=== PATIENT | male | born 1975 | race Caucasian/White ===

== ENCOUNTER 2020-01-10 08:25 | Inpatient (IN) | payer MEDICARE, SELFPAY ==
[2020-01-10] MEDS ORDERED: hydrALAZINE 20 MG/ML VIAL SLOW IVP PRN (17:27)
[2020-01-10] MEDS ORDERED: Dextrose 5% in Water 1,000 ML IV PRN (17:27)
[2020-01-10] MEDS ORDERED: HumaLOG 300 UNITS/3 ML VIAL SC PRN (17:27)
[2020-01-10] MEDS ORDERED: Acetaminophen 325 MG TAB PO PRN (17:27)
[2020-01-10] MEDS ORDERED: Ondansetron PF 4 MG/2 ML Vial IVP PRN (17:27)
[2020-01-10] MEDS ORDERED: Sodium Chloride 0.9% (PF) 10 ML VIAL FS PRN (17:30)
[2020-01-10 18:02] LABS: #Eosinphils 0.1 thou/uL (0.0-0.7); #Lymphocytes 1.3 thou/uL (1.20-3.40); #Monocytes 0.7 thou/uL (0.11-0.59); #Neutrophils 7.2 thou/uL (1.40-6.50); %Basophils 0.4 % (0.0-1.0); %Eosinophils 0.6 % (0.0-10.0); %Lymphocytes 14.1 % (21.0-51.0); %Monocytes 7.2 % (0.0-10.0); %Neutrophils 77.7 % (42.0-75.0); Hemoglobin 8.1 g/dL (14.0-18.0); Mean Corpuscular HGB CONC 30.8 g/dL (32.0-36.0); Mean Corpuscular Hemoglobin 21.8 pg (27.0-31.0); Mean Corpuscular Volume 70.6 fL (78.0-98.0); Mean Platelet Volume 7.7 fL (7.4-10.4); Platelet Count 584 thou/uL (130-400); RBC Distribution Width 21.5 % (11.5-14.5); Red Blood Cell (RBC) Count 3.74 mill/uL (4.70-6.10); White Blood Cell (WBC) Count 9.3 thou/uL (4.8-10.8)
[2020-01-10 18:19] LABS: Anion Gap 9 mmol/L (10-20); BUN (Urea Nitrogen) 12 mg/dL (8.9-20.6); Calc. Creatinine Clearance 52 mL/min (70-130); Calcium 8.1 mg/dL (7.8-10.44); Carbon Dioxide 21 mmol/L (22-29); Chloride 110 mmol/L (98-107); Estimated GFR-MDRD 75; Glucose 107 mg/dL (70-105); Magnesium 1.9 mg/dL (1.6-2.6); Sodium 138 mmol/L (136-145)
[2020-01-10] MEDS: NS 0.9% w/ 20 MEQ KCL 1,000 ML/1,000 ML BAG IV SCH (18:31)
[2020-01-10 18:39] LABS: Potassium 2.3 mmol/L (3.5-5.1)
[2020-01-10] MEDS ORDERED: Potassium Chloride 40 MEQ in Premix Bag 1 BAG IVPB SCH (18:45)
[2020-01-10] MEDS ORDERED: Potassium Chloride 40 MEQ in Sodium Chloride 0.9% 250 ML 250 ML IVPB SCH (19:00)
--- NOTE | 2020-01-10 19:16 | HP ---
PRIMARY CARE PHYSICIAN: The patient currently does not have a primary care physician. CHIEF COMPLAINT: Abdominal pain. HISTORY OF PRESENT ILLNESS: Mr. Méndez is a pleasant for 44-year-old gentleman, who has a history of Crohn's disease. He recently moved here from [place], [place], and says that he has not had treatment for his Crohn disease in many years, he says about 5 years. He has noticed recently abdominal pain which has been more or less diffuse, but he also has had pain from his mouth down to his xiphoid, which he describes as a burning-like sensation. This has been for the last 2 weeks. He says is not related to any position that he sits in. He does not seem to be related to food with the exception of soda tends to make it worse. He also has been having chronic diarrhea, but no blood in the stools. He has had some vomiting off and on, but no fevers, no chills. He also has had about 15 pounds weight loss over the past 2 weeks and has been extremely weak. As a result of the symptoms, he went to the emergency room at [facility]. There, he was found to have severe anemia as well as hypokalemia. They gave him potassium replacement overnight, but he still had a potassium of around 2.2. For this reason, he was transferred to our facility for further evaluation. REVIEW OF SYSTEMS: All systems were reviewed and are negative except for that mentioned in the history of present illness. He did also have some depressive symptoms including anhedonia and decreased aspects of poor sleep patterns, but no suicidal ideation or homicidal ideation. PAST MEDICAL HISTORY: Significant for Crohn disease, gastroesophageal reflux disease, depression and anxiety. PAST SURGICAL HISTORY: He has had an appendectomy, cholecystectomy, ileostomy, lithotripsy and small-bowel obstruction. ALLERGIES: TO CONTRAST AND BLOOD TRANSFUSIONS. FAMILY HISTORY: Significant for heart disease and cerebrovascular disease. SOCIAL HISTORY: He has recovered from an opioid addiction. Denies any alcohol use. He says he smokes about five cigarettes a day. CURRENT MEDICATIONS: Include just tramadol 50 mg q.6 as needed. PHYSICAL EXAMINATION: GENERAL: He is alert and oriented. He is very thin and frail and cachectic in appearance and appears chronically ill. HEENT: He does have some temporal muscle wasting. No erythema. No exudates. NECK: No adenopathy. No bruits. LUNGS: Clear to auscultation. There is no wheezing, no rales, no rhonchi. CARDIOVASCULAR: He has a normal S1 and S2. There was no S3 or S4. No murmurs, clicks, or rubs. ABDOMEN: Scaphoid. He did have some diffuse tenderness primarily in the left lower quadrant. There is no rebound, no guarding, no organomegaly. EXTREMITIES: There is significant lower extremity muscle wasting. No edema. No joint effusions. NEUROLOGIC: The exam is grossly nonfocal. SKIN AND INTEGUMENT: No significant skin changes. No rash. LABORATORY DATA: The labs were reviewed from the [facility] ER and these include white blood cell count of 11.7, hemoglobin of 7.2, hematocrit is 24, platelet count was 523. Sodium 134, potassium 2.3, chloride is 104, CO2 is 21, BUN of 13, and creatinine of 1.1. Liver tests appear normal. ASSESSMENT: This is a pleasant 44-year-old gentleman, who was sent over from [facility] ER due to severe hypokalemia, anemia, weight loss and abdominal pain secondary to Crohn disease. There is no clinical evidence of obstruction. 1. With the hypokalemia, we will get a stat chemistry panel now and continue to replace his potassium as needed. We will also need to check his serum magnesium level as well. 2. Abdominal pain in the setting of Crohn's disease. He does not appear to have an acute abdomen. We will need to follow up on the CT scan report, which was done prior to him being sent over and we will consult Gastroenterology to help in the evaluation, place him on IV proton pump inhibitors and obtain stool studies for the diarrhea to rule out superimposed infection. 3. Weight loss. This is concerning for potential malignancy given the untreated Crohn disease. We will defer to further workup by GI and also get a nutritional consult as well. The patient will be placed on deep venous thrombosis prophylaxis and further recommendations to follow. Job ID: [id number]
[2020-01-10] MEDS: Pantoprazole 40 MG VIAL IVP SCH (19:43)
[2020-01-10] MEDS ORDERED: Pantoprazole 40 MG VIAL IVP SCH (21:00)
[2020-01-11 04:43] LABS: #Basophils 0.1 thou/uL (0.0-0.2); #Eosinphils 0.1 thou/uL (0.0-0.7); #Lymphocytes 1.9 thou/uL (1.20-3.40); #Neutrophils 7.7 thou/uL (1.40-6.50); %Basophils 0.5 % (0.0-1.0); %Eosinophils 0.8 % (0.0-10.0); %Lymphocytes 17.4 % (21.0-51.0); %Monocytes 9.2 % (0.0-10.0); %Neutrophils 72.2 % (42.0-75.0); Hemoglobin 7.4 g/dL (14.0-18.0); Mean Corpuscular HGB CONC 29.5 g/dL (32.0-36.0); Mean Corpuscular Hemoglobin 21.2 pg (27.0-31.0); Mean Corpuscular Volume 71.7 fL (78.0-98.0); Mean Platelet Volume 7.7 fL (7.4-10.4); Platelet Count 536 thou/uL (130-400); RBC Distribution Width 21.4 % (11.5-14.5); White Blood Cell (WBC) Count 10.7 thou/uL (4.8-10.8)
[2020-01-11] MEDS: NS 0.9% w/ 20 MEQ KCL 1,000 ML/1,000 ML BAG IV SCH (04:54)
[2020-01-11 05:18] LABS: ALT (SGPT) 44 U/L (8-55); AST (SGOT) 36 U/L (5-34); Albumin 2.7 g/dL (3.5-5.0); Alkaline Phosphatase 113 U/L (40-110); Anion Gap 11 mmol/L (10-20); BUN (Urea Nitrogen) 10 mg/dL (8.9-20.6); Bilirubin, Total Less than 0.2 mg/dL (0.2-1.2); Calc. Creatinine Clearance 57 mL/min (70-130); Calcium 7.6 mg/dL (7.8-10.44); Carbon Dioxide 16 mmol/L (22-29); Chloride 114 mmol/L (98-107); Estimated GFR-MDRD 84; Globulin 2.4 g/dL (2.4-3.5); Glucose 83 mg/dL (70-105); Protein, Total 5.1 g/dL (6.0-8.3); Sodium 138 mmol/L (136-145)
[2020-01-11 05:22] LABS: Potassium 2.7 mmol/L (3.5-5.1)
[2020-01-11] MEDS ORDERED: Potassium Chloride 40 MEQ in Premix Bag 1 BAG IVPB SCH (08:00)
[2020-01-11] MEDS: Potassium Chloride 20 MEQ in Premix Bag 1 BAG IVPB SCH ×2 (08:20→15:28)
[2020-01-11] MEDS: Pantoprazole 40 MG VIAL IVP SCH ×2 (08:21→20:52)
--- NOTE | 2020-01-11 08:42 | PDOC.HOSPP ---
- Subjective Encounter Date: 01/11/20 Encounter Time: 08:40 Subjective: Mr. Méndez is being followed for anemia, hypokalemia, and diarrhea. This morning he seemed better compared to yesterday, but still appears cachectic. He was more talkative and willing to describe his symptoms today than yesterday. He is worried about the pain he is experiencing and his unmanaged Crohn's. He reported have 8 diarrheal movements overnight as well as one accident where he couldn't make it to the bathroom. He is less somnolent than yesterday. - Objective Vital Signs & Weight: Vital Signs (12 hours) Temp Pulse Resp BP BP Pulse Ox 01/11/20 08:12 97.5 F L 67 18 88/51 L 86/52 L 100 01/11/20 04:00 98.8 F 77 20 98/55 L 98 01/10/20 23:30 98.8 F 77 21 H 94/51 L 100 Weight Weight 41.095 kg I&O: 01/10/20 01/11/20 01/12/20 06:59 06:59 06:59 Intake Total 2110 Output Total 700 Balance 1410 Result Diagrams: 01/11/20 10:59 01/11/20 04:01 Additional Labs: Accuchecks 01/11/20 01/10/20 05:39 20:42 POC Glucose 95 85 Hospitalist ROS - Review of Systems Constitutional: reports: chills, weakness, malaise. denies: fever Eyes: denies: pain Respiratory: denies: cough, shortness of breath Cardiovascular: reports: light headedness (patient reports being dizzy). denies : chest pain, palpitations Gastrointestinal: reports: nausea, diarrhea (reports 8 watery bowel movements overnight and one accident). denies: vomiting, abdominal pain, melena, hematochezia Genitourinary: denies: dysuria - Medication Medications: Active Medications Generic Name Dose Route Start Last Admin Trade Name Freq PRN Reason Stop Dose Admin Enoxaparin Sodium 40 mg 01/11/20 09:00 01/11/20 08:21 Lovenox SC 40 mg 0900 CLINTON Administration Potassium Chloride/Sodium Chloride 1,000 ml in 1,000 mls @ 75 mls/hr 01/10/20 17:30 01/11/20 04:54 Ns 0.9% W/ 20 Meq Kcl IV Not Given .[id number] CLINTON Potassium Chloride 20 meq/ 100 mls @ 50 mls/hr 01/11/20 08:00 01/11/20 08:20 Device IVPB 01/11/20 11:59 100 mls Q2H [place]ON Administration Pantoprazole Sodium 40 mg 01/10/20 21:00 01/11/20 08:21 Protonix IVP 40 mg Q12HR CL[place]ON Administration - Exam General Appearance: awake alert Eye: PERRL, anicteric sclera ENT: normocephalic atraumatic Neck: no lymphadenopathy Heart: RRR, no murmur, no gallops, no rubs, normal peripheral pulses Respiratory: CTAB, no wheezes, no rales, no ronchi Gastrointestinal: soft, normal bowel sounds, no palpable masses, no guarding, tender to palpation (Lower quadrants tender to light palpation) Extremities: no cyanosis, no edema Musculoskeletal: generalized weakness (Lower extremities are cachecitc and patient is overall very weak) Psychiatric: normal affect, A&O x 3 Hosp A/P - Plan * Anemia - patient's hemoglobin has droppend from 8.1 --> 7.4. Consult GI to check for GI bleed * Hypokalemia - continue replacing potassium and check for hypomagnesemia * Diarrhea - continue fluid replacement. The patient has Crohn's disease that has not been managed for 5 years - Consult Gastroenterology * GERD - continue Proton pump Inhibitor * * Patient seen and examined. Agree with above. Mr. Méndez is still noting some weakness and notes some abdominal discomfort. On exam is lungs are clear, heart sounds are normal, no edema. Will transfuse for symptomatic anemia. Check iron studies. Stool studies have also been ordered. Continue to replace potassium. Will consult GI for further recommendations.
[2020-01-11] MEDS ORDERED: Enoxaparin Sodium 40 MG/0.4 ML SYRINGE SC SCH (09:00)
[2020-01-11 11:18] LABS: Hemoglobin 7.5 g/dL (14.0-18.0); Platelet Count 480 thou/uL (130-400)
[2020-01-11 12:21] LABS: Iron 10 ug/dL (65-175); Iron Binding Capacity, Total 331 mcg/dL (261-462)
[2020-01-11 12:39] LABS: Ferritin Less than 2.00 ng/mL (22-322)
[2020-01-11 12:46] LABS: Vitamin B12 348 pg/mL (211-911)
[2020-01-11] MEDS: diphenhydrAMINE 50 MG CAP PO PRN (12:50)
[2020-01-11 12:54] LABS: HBCM Index 0.05 S/CO (0-0.79); HBSAB Concentration 0.25 mIU/mL; Hep A IgM AB Non-Reactive (NonReactive); Hep A IgM S/CO 0.17 S/CO (0-0.79); Hep B Surf AB Non-Reactive (NonReactive); Hep B Surf Ag Non-Reactive S/CO (NonReactive); Hep C IgG Ab Non-Reactive (NonReactive); Hep C Index 0.12 S/CO (0-0.79); Hepatitis B Core IgM Abs Non-Reactive (NonReactive); Vitamin D, 25 Hydroxy 37.3 ng/ml (> 30.0)
[2020-01-11 19:21] LABS: Potassium 2.9 mmol/L (3.5-5.1)
[2020-01-11] MEDS ORDERED: Potassium Chloride 20 MEQ TAB PO SCH (19:30)
[2020-01-11] MEDS: traMADol HCl 50 MG TAB PO PRN (20:52)
--- NOTE | 2020-01-11 21:46 | CON ---
DATE OF CONSULTATION: 01/11/2020 CHIEF COMPLAINT: Diarrhea and weight loss, abdominal pain. HISTORY OF PRESENT ILLNESS: Mr. Méndez is a 44-year-old man with a history of Crohn's disease and multiple bowel resections who has not been regularly treated for years, but recently moved back to [facility] and over the last couple of weeks reports worsening diarrhea, odynophagia and weight loss from 115 pounds down to 90 pounds. He has had intermittent vomiting around once per day over the last couple of weeks. He has around 8 liquid stools per day that have been nonbloody. He does have right lower quadrant aching abdominal pain that is fairly constant. Nothing really seems to make his symptoms better or worse. He believes he was treated in the hospital at [facility] around a year ago with some steroids. He has not been on anything for his Crohn's otherwise recently. He is not taking any medications by prescription or [id number] leading up to his odynophagia. He is found to have severe hypokalemia and he was admitted and given oral and IV potassium. He has not tolerated the IV potassium, so even with diluted potassium, he has not been getting this. He has been taking some by mouth in powder form. He was found to have severe anemia as well, but has not had overt bleeding. PAST MEDICAL HISTORY: Crohn's disease. This was diagnosed around age 19. He has had 2 small bowel resections in the past, which he states was at least 18 inches. He had appendectomy and cholecystectomy. Those surgeries were all done prior to 2013 when he was last seen here. In 2015, he had an ileostomy placed, which he states was to rest his colon and then he had an ileostomy takedown later. He has had diarrhea ever since then. He believes he has had a colon resection with the time that he had the ileostomy, but this is not clear. He also has gastroesophageal reflux disease. FAMILY HISTORY: Negative for GI malignancy or inflammatory bowel disease. SOCIAL HISTORY: He smokes 5 cigarettes per day. He had a prior opioid addiction and has recovered from that. No alcohol use. ALLERGIES: CONTRAST. MEDICATIONS: Prior to admission, possibly tramadol. REVIEW OF SYSTEMS: Negative x10 systems reviewed except as stated in the history of present illness. PHYSICAL EXAMINATION: VITAL SIGNS: Temperature 98.5, pulse 72, blood pressure 90/53. His weight is 90 pounds. GENERAL: He is cachectic. He is alert and oriented x3. HEENT: Eyes have no scleral icterus. Oropharynx is clear without lesions. No cervical or supraclavicular lymphadenopathy. LUNGS: Clear to auscultation bilaterally. HEART: Regular rate and rhythm without murmur. ABDOMEN: Soft. Mild tenderness in the right lower quadrant without guarding. Bowel sounds are present. EXTREMITIES: No lower extremity edema. Cranial nerves are grossly intact. LABORATORY DATA: White blood cell count 10.7, hemoglobin is 7.5, platelets 480. Sodium 138, potassium 2.7, up from 1.9 originally. Magnesium 1.9. Iron 10, TIBC 331, ferritin 2, bilirubin 0.2, AST 36, ALT 44, alkaline phosphatase 113. C-reactive protein 0.5, albumin 2.7, B12 348, folate 12.2, vitamin D 37. Hepatitis A, B, and C were negative including the acute viral hepatitis panel and the hepatitis B surface antibody. Hepatitis A total antibody is pending. C diff was negative. Stool occult blood was negative. Rapid O and P were negative. Lactoferrin is elevated. Shiga toxin is negative. Campylobacter antigen was negative. IMPRESSION: 1. Crohn disease of the small bowel and colon. He has had 2 small bowel resections and apparently a colon resection, ileostomy and then ileostomy takedown previously. He has also had cholecystectomy. He has been on off Humira and Remicade in the distant past, but he has been on no treatment since 2013. He had been on azathioprine in the more distant past as well. Again, he has not been on this any time recently. He should have endoscopy to assess activity of his disease to help determine the treatment course. This has been complicated by lack of insurance in the past and lack of compliance. I would hold off treating with steroids until we better understand the status of his disease. 2. Weight loss. He has lost from 115 pounds down to 90 pounds. This is largely due to lack of eating and diarrhea with malabsorption. We would want to rule out malignancy. Again, endoscopy is indicated. 3. Iron deficiency anemia. He does not have overt bleeding and he was Hemoccult negative. Given his history of Crohn's, he likely still has some degree of chronic gastrointestinal blood loss, but we will also want to rule out a concurrent celiac disease causing malabsorption. 4. Severe protein malnutrition. 5. Odynophagia. He has not been taking any pills to indicate that he has a pill esophagitis. He could have fungal esophagitis due to immune suppression from his malnutrition. We will assess this with endoscopy. 6. Severe hypokalemia. He has not been tolerating IV potassium supplementation, has been taking p.o. RECOMMENDATIONS: 1. Follow through with EGD and colonoscopy once his potassium has been able to be adequately repleted in the setting of ongoing diarrhea and intolerance to IV replacement. I would be hesitant to plan a bowel prep for him until his potassium levels are better stabilized. 2. He has received blood transfusion. IV iron would also be appropriate. 3. Check tissue transglutaminase antibody. 4. QuantiFERON has been ordered in anticipation of future need for immune suppression. He also had hepatitis A total antibody pending, and if this is negative, he should be vaccinated. His hepatitis B surface antibody is negative and he should undergo vaccination for this as well, which can be done as an outpatient. Job ID: [id number]
[2020-01-12] MEDS: traMADol HCl 50 MG TAB PO PRN ×2 (05:13→16:04)
--- NOTE | 2020-01-12 08:04 | PDOC.HOSPP ---
- Subjective Encounter Date: 01/12/20 Encounter Time: 08:36 Subjective: Mr. Méndez is being followed for anemia, hypokalemia, and Crohn's disease. He looks stronger today than the past two days and reported being able to walk down the hallway. He was sitting upright in bed reading and eating breakfast when I visited him this morning. He was very pleasant and asked about how his lab values were doing this morning. He also expressed desire to improve his electrolytes, so he could receive an endoscopy. - Objective Vital Signs & Weight: Vital Signs (12 hours) Temp Pulse Resp BP Pulse Ox 01/12/20 07:55 97.7 F 67 22 H 89/52 L 99 01/12/20 04:00 97.6 F 67 18 90/50 L 98 01/11/20 23:33 73 92/55 L 01/11/20 23:18 96/59 L Weight Admit Weight 90 lb 9.6 oz Weight 92 lb 1.6 oz I&O: 01/11/20 01/12/20 01/13/20 06:59 06:59 06:59 Intake Total 2110 7280 Output Total 700 Balance 1410 7280 Result Diagrams: 01/12/20 08:25 01/12/20 08:25 Additional Labs: Accuchecks 01/12/20 01/11/20 01/11/20 05:50 20:32 16:27 POC Glucose 81 117 H 83 01/11/20 10:59 POC Glucose 117 H Hospitalist ROS - Review of Systems Constitutional: reports: weakness (still reported weakenss but much improved from yesterday). denies: fever, chills Eyes: denies: pain ENT: reports: throat pain (contiues to report pain upon swallowing but less so with non-carbonated food items and is improved with tramadol administration) Respiratory: denies: cough, shortness of breath Cardiovascular: denies: chest pain, palpitations, edema, light headedness Gastrointestinal: reports: diarrhea (reports 5 watery bowel movements overnight) , other (reports anal pain upon defecation). denies: nausea, vomiting Musculoskeletal: denies: neck pain, shoulder pain, back pain Neurological: denies: numbness - Medication Medications: Active Medications Generic Name Dose Route Start Last Admin Trade Name Freq PRN Reason Stop Dose Admin Diphenhydramine HCl 50 mg 01/11/20 12:26 01/11/20 12:50 Benadryl PO 50 mg Q6H PRN Administration Itching & Insomnia Pantoprazole Sodium 40 mg 01/10/20 21:00 01/11/20 20:52 Protonix IVP 40 mg Q12HR [place] Administration Sodium Chloride 10 ml 01/11/20 08:54 01/11/20 20:58 Flush - Normal Saline IVF 10 ml PRN PRN Administration Saline Flush Tramadol HCl 100 mg 01/10/20 17:29 01/12/20 05:13 Ultram PO 100 mg Q6HR PRN Administration Pain - Exam General Appearance: awake alert Eye: PERRL, anicteric sclera ENT: normocephalic atraumatic, no oropharyngeal lesions Neck: no JVD, no lymphadenopathy Heart: RRR, no murmur, no gallops, no rubs, normal peripheral pulses Respiratory: CTAB, no wheezes, no rales, no ronchi Gastrointestinal: soft, non-distended, normal bowel sounds, no palpable masses, tender to palpation (Lower quadrants remain tender to palpation) Extremities: no cyanosis, no edema Musculoskeletal - other findings: patient is cachetic Psychiatric: normal affect, normal behavior, A&O x 3 Psychiatric - other findings: patient appeared happier and more energetic Hosp A/P (1) Crohn's disease Code(s): K50.90 - CROHN'S DISEASE, UNSPECIFIED, WITHOUT COMPLICATIONS Status: Chronic (2) Anemia Code(s): D64.9 - ANEMIA, UNSPECIFIED Status: Acute (3) Hypokalemia Code(s): E87.6 - HYPOKALEMIA Status: Acute (4) GERD (gastroesophageal reflux disease) Code(s): K21.9 - GASTRO-ESOPHAGEAL REFLUX DISEASE WITHOUT ESOPHAGITIS Status: Chronic (5) Weight loss Status: Acute - Plan * Anemia - patient was transfused yesterday with 1 unit PRBC, GI reported negative hemoccult test. Awaiting iron studies * Hypokalemia - continue replacing potassium orally due to inability to tolerate IV potassium. Check for hypomagnesemia * Diarrhea - negative for Campylobacter, Shiga toxin, O&P, Hepatitis A/B/C, and C. diff. Awaiting results for Celiac disease workup - GI consulted and following * Weight loss - patient has lost 25 pounds over two weeks - GI awaiting potassium levels to normalize before conducting endoscopy to rule out malignancy * GERD - continue Proton pump Inhibitor * * Patient was seen and examined and discussed with Puja Zaman MS-2. He is feeling much better today. He was seen walking in the humphrey with PT. He continues to have some diarrhea, and some pain with defecation. His exam is unchanged. Iron studies are significant for severe iron deficiency anemia. Agree with iron supplementation, which may need to be IV- will start p.o.. Plan is for EGD and Colonoscopy. Agree with screen for Celiac Disease. Continue to replace potassium.
[2020-01-12] MEDS ORDERED: Enoxaparin Sodium 40 MG/0.4 ML SYRINGE SC SCH (09:00)
[2020-01-12] MEDS: Pantoprazole 40 MG VIAL IVP SCH ×2 (09:17→20:48)
[2020-01-12 09:21] LABS: Anion Gap 9 mmol/L (10-20); BUN (Urea Nitrogen) 7 mg/dL (8.9-20.6); Calc. Creatinine Clearance 52 mL/min (70-130); Calcium 8.1 mg/dL (7.8-10.44); Carbon Dioxide 18 mmol/L (22-29); Chloride 112 mmol/L (98-107); Estimated GFR-MDRD 73; Glucose 103 mg/dL (70-105); Potassium 3.4 mmol/L (3.5-5.1); Sodium 136 mmol/L (136-145)
[2020-01-12 10:15] LABS: #Basophils 0.1 thou/uL (0.0-0.2); #Eosinphils 0.1 thou/uL (0.0-0.7); #Lymphocytes 1.7 thou/uL (1.20-3.40); #Monocytes 0.5 thou/uL (0.11-0.59); #Neutrophils 6.7 thou/uL (1.40-6.50); %Basophils 0.8 % (0.0-1.0); %Eosinophils 1.5 % (0.0-10.0); %Lymphocytes 18.7 % (21.0-51.0); %Monocytes 5.7 % (0.0-10.0); %Neutrophils 73.4 % (42.0-75.0); Anisocytosis SLIGHT = 6-15 cells (100X) (0-5/hpf); Burr Cells SLIGHT = 2-5 cells (100X) (0-1/hpf); Crenated RBC SLIGHT = 1-5 cells (100X) (None Seen); Hemoglobin 10.4 g/dL (14.0-18.0); Hypochromia MODERATE=16-30 cells (100X) (0-5/hpf); MDiff Complete? YES; Mean Corpuscular HGB CONC 30.9 g/dL (32.0-36.0); Mean Corpuscular Hemoglobin 23.1 pg (27.0-31.0); Mean Platelet Volume 8.1 fL (7.4-10.4); Platelet Count 457 thou/uL (130-400); Platelet Morphology Comment Appears Increased; RBC Distribution Width 21.3 % (11.5-14.5); Red Blood Cell (RBC) Count 4.48 mill/uL (4.70-6.10); White Blood Cell (WBC) Count 9.2 thou/uL (4.8-10.8)
--- NOTE | 2020-01-12 12:39 | PRG ---
DATE OF SERVICE: 01/12/2020 SUBJECTIVE: Mr. Méndez feels better today overall. He still has discomfort with swallowing. OBJECTIVE: VITAL SIGNS: Temperature 97.7, pulse 67, blood pressure 98/53. GENERAL: He is in no acute distress. Alert and oriented x3. LUNGS: Clear to auscultation bilaterally. HEART: Regular rate and rhythm without murmur. ABDOMEN: Soft, nontender, and nondistended. Bowel sounds are present. EXTREMITIES: No lower extremity edema. LABORATORY DATA: His hemoglobin is 10.4 today that is after 1 unit of transfusion. His hemoglobin was 7.5 yesterday. White blood cell count 9.2, platelets 457. Potassium is up to 3.4 today. Creatinine 1.1. IMPRESSION: 1. Crohn disease of the small bowel and colon, status post 2 small bowel resections and apparently, a right colon resection as well. 2. Diarrhea, cachexia, and severe malnutrition. We still need to determine if this is related to his bowel resection or malabsorption for other reason. We also need to differentiate between active inflammatory Crohn's. Neoplastic process also needs to be ruled out. Endoscopy is planned. 3. Odynophagia. 4. Iron-deficiency anemia. 5. Protein malnutrition. RECOMMENDATIONS: 1. Continue to replace potassium aggressively. 2. EGD and colonoscopy tomorrow with a bowel prep today. Job ID: [id number]
[2020-01-12] MEDS ORDERED: GoLYTELY 4,000 ml Bottle PO SCH (17:00)
[2020-01-12] MEDS ORDERED: Ferrous Sulfate 325 MG TAB PO SCH (17:00)
[2020-01-12] MEDS ORDERED: Dextrose 5 % And 0.9 % NaCl 1,000 ML IV SCH (17:45)
[2020-01-12] MEDS: Dextrose 50% Abboject 50 ML SYRINGE SLOW IVP PRN (20:09)
[2020-01-12] MEDS: HYDROcodone/Acetaminophen 5/325 mg Tablet PO PRN (20:48)
[2020-01-12] MEDS: Enoxaparin Sodium 30 MG/0.3 ML SYRINGE SC SCH (20:52)
[2020-01-13] MEDS: Dextrose 10% in Water 1,000 ML IV SCH ×2 (01:33→14:16)
[2020-01-13] MEDS: Dextrose 50% Abboject 50 ML SYRINGE SLOW IVP PRN (05:53)
[2020-01-13 07:02] LABS: Hemoglobin 9.8 g/dL (14.0-18.0); Mean Corpuscular HGB CONC 31.1 g/dL (32.0-36.0); Mean Corpuscular Hemoglobin 23.1 pg (27.0-31.0); Mean Corpuscular Volume 74.3 fL (78.0-98.0); Mean Platelet Volume 7.8 fL (7.4-10.4); Platelet Count 402 thou/uL (130-400); RBC Distribution Width 21.6 % (11.5-14.5); Red Blood Cell (RBC) Count 4.22 mill/uL (4.70-6.10); White Blood Cell (WBC) Count 10.9 thou/uL (4.8-10.8)
[2020-01-13 07:35] LABS: Anion Gap 13 mmol/L (10-20); BUN (Urea Nitrogen) 7 mg/dL (8.9-20.6); Calc. Creatinine Clearance 62 mL/min (70-130); Carbon Dioxide 15 mmol/L (22-29); Chloride 110 mmol/L (98-107); Estimated GFR-MDRD 87; Glucose 111 mg/dL (70-105); Potassium 3.3 mmol/L (3.5-5.1); Sodium 135 mmol/L (136-145)
[2020-01-13] MEDS ORDERED: Ketamine 50 MG/ML (10ML VIAL) ONE (08:25)
[2020-01-13] MEDS ORDERED: Esmolol 100 MG/10 ML VIAL ONE (09:42)
--- NOTE | 2020-01-13 09:59 | OP ---
DATE OF PROCEDURE: 01/13/2020 PROCEDURE PERFORMED: Esophagogastroduodenoscopy with biopsy and esophageal dilation over guidewire and colonoscopy with biopsy. PREOPERATIVE DIAGNOSES: Crohn disease, diarrhea, weight loss, and odynophagia. DESCRIPTION OF PROCEDURE: Informed consent was obtained from the patient. He was sedated with total intravenous anesthesia. The bite block was placed and the endoscope was advanced easily to the second portion of the duodenum and retroflexion was performed in the stomach. The esophagus was narrowed diffusely. He had concentric esophageal rings and vertical shallow ulcerations. There were a couple of centimeters in length each throughout the extent of the esophagus. Biopsies were obtained from the esophagus. There was also a more dominant distal esophageal stricture. Biopsies were obtained from the esophagus. Savary dilators were placed to the esophagus at 12 mm, 12.8 mm, and finally 14 mm. There was significant resistance with all three dilators. Shallow mucosal tears were seen after the 14 mm dilator was placed. The stomach was normal including retroflexed views. The pylorus and first and second portions of the duodenum were normal. Duodenal biopsies were taken to rule out celiac disease. Air was suctioned from the stomach. The patient was turned around. Rectal exam revealed an anal stricture that was too tight to pass my finger through. This was initially too tight to pass an endoscope through. I advanced my finger through the anal canal, which dilated the stricture such that I was able to then pass the colonoscope through the opening. The colonoscope was advanced all the way to the terminal ileum. There was an anastomosis that appeared to be an ileocolonic anastomosis at the transverse colon. The colonoscope did pass through the anastomosis. However, there was ulceration and stricturing of the anastomosis. The ulcer was 60% circumferential with a 2.5 to 3 cm long ulcer that is stretching to the terminal ileum with moderate depth. Biopsies were obtained from the terminal ileum and ulcer edges. The colonic mucosa was otherwise normal. I took biopsies from the transverse and descending sigmoid and rectum. Retroflexed views in the rectum revealed ulcerations circumferentially around the anal opening and was at the level of the dentate line. Biopsies were obtained from the proximal ulcer edge as well in this area. IMPRESSION: 1. 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 Biopsies were obtained. The esophagus was dilated to 12, 12.8, and finally 14 mm with a Savary dilator over a guidewire. Shallow mucosal tears were seen with the dilation. However, there was marked resistance to passage of the dilators. 2. Otherwise normal EGD. Duodenal biopsies were taken to rule out celiac disease. 3. Anal stricture and ulcer dilated digitally and biopsied. 4. Ileocolonic anastomosis in the transverse colon with stenosis and ulceration 60% circumferentially around the anastomosis and the ulceration extending 2.5 to 3 cm into the terminal ileum. Biopsies were obtained. The terminal ileum was otherwise normal, well into the ileum. 5. The colonic mucosa was normal. Biopsies were obtained segmentally. RECOMMENDATIONS: 1. Await histopathology. 2. I will give a course of prednisone in light of the active ulcerations and severe weight loss and diarrhea. 3. Follow up in the office to initiate treatment with a biologic with Dr. Baltazar. 4. Advance diet. 5. Start cholestyramine. The patient has had two resections of the small bowel and then of the right colon as well. 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 He could have bile salt malabsorption contributing to his chronic diarrhea. 6. Proton pump inhibitor twice daily. Job ID: [id number]
[2020-01-13] MEDS ORDERED: Bacteriostatic Water 30 ML VIAL FS PRN (10:41)
--- NOTE | 2020-01-13 11:02 | PDOC.HOSPP ---
- Subjective Encounter Date: 01/13/20 Encounter Time: 11:01 Subjective: Mr. Méndez was seen today in follow-up of Crohn's disease. He says he feels a bit groggy from the procedure. He does not have anynew complaints. He says he wants me to inform the people he lives with of his diagnosis, because he says they had questions, and this will help them to feel more comfortable with him staying there. - Objective Vital Signs & Weight: Vital Signs (12 hours) Temp Pulse Resp BP BP Pulse Ox 01/13/20 10:36 97.5 F L 83 15 90/51 L 100 01/13/20 03:55 97.5 F L 60 20 88/50 L 100 Weight Admit Weight 90 lb 9.6 oz Weight 94 lb 14.4 oz I&O: 01/12/20 01/13/20 01/14/20 06:59 06:59 06:59 Intake Total 7280 8100 Output Total 650 Balance 7280 7450 Result Diagrams: 01/13/20 06:57 01/13/20 06:57 Additional Labs: Accuchecks 01/13/20 01/13/20 01/13/20 10:48 06:41 05:46 POC Glucose 153 H 182 H 51 L* 01/13/20 01/12/20 01/12/20 01:16 21:05 16:56 POC Glucose 50 L* 153 H 62 L Hospitalist ROS - Medication Medications: Active Medications Generic Name Dose Route Start Last Admin Trade Name Freq PRN Reason Stop Dose Admin Hydrocodone Bitart/Acetaminophen 1 tab 01/10/20 17:27 01/12/20 20:48 [place] 5/325 PO 1 tab Q4H PRN Administration Moderate Pain (4-6) Dextrose/Water 25 gm 01/10/20 17:27 01/13/20 05:53 Dextrose 50% SLOW IVP 25 gm PRN PRN Administration Hypoglycemia Diphenhydramine HCl 50 mg 01/11/20 12:26 01/11/20 12:50 Benadryl PO 50 mg Q6H PRN Administration Itching & Insomnia Enoxaparin Sodium 30 mg 01/12/20 21:00 01/12/20 20:52 Lovenox SC Not Given 2100 [place] Dextrose/Water 1,000 mls @ 0 mls/hr 01/10/20 17:27 01/12/20 17:55 D5w IV 1,000 mls .Q0M PRN Administration Hypoglycemia As Directed Dextrose/Water 1,000 mls @ 50 mls/hr 01/13/20 01:30 01/13/20 01:33 Dextrose 10% In Water IV 1,000 mls .Q20H [place] Administration Pantoprazole Sodium 40 mg 01/10/20 21:00 01/12/20 20:48 Protonix IVP 40 mg Q12HR [place] Administration Potassium Chloride 20 meq 01/12/20 08:00 01/12/20 16:04 Klor-Con PO 20 meq TID-WM [place] Administration Sodium Chloride 10 ml 01/11/20 08:54 01/11/20 20:58 Flush - Normal Saline IVF 10 ml PRN PRN Administration Saline Flush Tramadol HCl 100 mg 01/10/20 17:29 01/12/20 16:04 Ultram PO 100 mg Q6HR PRN Administration Pain - Exam Eye: PERRL Heart: RRR, no murmur, no gallops Respiratory: CTAB, no wheezes, no rales, no ronchi, normal chest expansion Gastrointestinal: soft (Mild tenderness no rebound or guarding) Extremities: no cyanosis, no edema Hosp A/P (1) Crohn's disease Code(s): K50.90 - CROHN'S DISEASE, UNSPECIFIED, WITHOUT COMPLICATIONS Status: Chronic (2) Anemia Code(s): D64.9 - ANEMIA, UNSPECIFIED Status: Acute (3) Hypokalemia Code(s): E87.6 - HYPOKALEMIA Status: Acute (4) GERD (gastroesophageal reflux disease) Code(s): K21.9 - GASTRO-ESOPHAGEAL REFLUX DISEASE WITHOUT ESOPHAGITIS Status: Chronic (5) Weight loss Status: Acute - Plan * EGD and Colonoscopy findings noted- he has an eophageal stricture, and and in the colon and post anastamotic stricutre and ulcer- both findings consistent with Crohn's disease. He has been placed on Solumedrol, and Cholestyramine ( for mal-absorption ) Await biopsy results. He can be started on a biologic agent as an outpatient. * Anemia -due to iron deficiency- he was transfused yesterday- continue iron supplementation * Hypokalemia -continue to monitor and replace as needed * Diarrhea - negative for Campylobacter, Shiga toxin, O&P, Hepatitis A/B/C, and C. diff. Awaiting results for Celiac disease workup - GI consulted and following - likely due to mal-absorption . Cholestyramine adde * GERD - continue Proton pump Inhibitor
[2020-01-13] MEDS: Sodium Bicarbonate Tab 325 MG TAB PO SCH ×2 (11:28→21:25)
[2020-01-13] MEDS ORDERED: PROPOFOL 200 MG/20 ML VIAL ONE (11:28)
[2020-01-13] MEDS: Pantoprazole 40 MG VIAL IVP SCH ×2 (11:28→21:25)
[2020-01-13] MEDS: Cholestyramine/Aspartame 4 gm Packet PO SCH ×2 (11:28→21:25)
[2020-01-13] MEDS: methylPREDNISolone Sod Succ 40 MG VIAL IVP SCH ×2 (11:29→21:25)
[2020-01-13] MEDS ORDERED: methylPREDNISolone Sod Succ 40 MG VIAL IVP SCH (14:00)
[2020-01-13] MEDS ORDERED: Sodium Chloride 0.9% 500 ML IV SCH (17:15)
[2020-01-13] MEDS: Enoxaparin Sodium 30 MG/0.3 ML SYRINGE SC SCH (21:24)
[2020-01-13] MEDS ORDERED: Sodium Chloride 0.9% 250 ML IV SCH (23:30)
[2020-01-14 00:38] LABS: Hemoglobin 8.9 g/dL (14.0-18.0)
[2020-01-14 00:51] LABS: Lactic Acid 1.9 mmol/L (0.5-2.2)
[2020-01-14 00:53] LABS: Anion Gap 8 mmol/L (10-20); BUN (Urea Nitrogen) 8 mg/dL (8.9-20.6); Calc. Creatinine Clearance 52 mL/min (70-130); Calcium 7.4 mg/dL (7.8-10.44); Carbon Dioxide 18 mmol/L (22-29); Chloride 112 mmol/L (98-107); Estimated GFR-MDRD 71; Glucose 124 mg/dL (70-105); Potassium 3.8 mmol/L (3.5-5.1); Sodium 134 mmol/L (136-145)
[2020-01-14] MEDS: methylPREDNISolone Sod Succ 40 MG VIAL IVP SCH ×3 (04:14→20:26)
[2020-01-14 04:35] LABS: #Monocytes 0.3 thou/uL (0.11-0.59); %Basophils 0.1 % (0.0-1.0); %Eosinophils 0.1 % (0.0-10.0); %Monocytes 2.3 % (0.0-10.0); %Neutrophils 89.4 % (42.0-75.0); Hemoglobin 8.6 g/dL (14.0-18.0); Mean Corpuscular HGB CONC 29.9 g/dL (32.0-36.0); Mean Corpuscular Hemoglobin 22.7 pg (27.0-31.0); Mean Platelet Volume 8.1 fL (7.4-10.4); Platelet Count 399 thou/uL (130-400); RBC Distribution Width 21.6 % (11.5-14.5); Red Blood Cell (RBC) Count 3.78 mill/uL (4.70-6.10); White Blood Cell (WBC) Count 12.3 thou/uL (4.8-10.8)
[2020-01-14 04:50] LABS: Anion Gap 11 mmol/L (10-20); BUN (Urea Nitrogen) 8 mg/dL (8.9-20.6); Calc. Creatinine Clearance 59 mL/min (70-130); Calcium 7.3 mg/dL (7.8-10.44); Carbon Dioxide 14 mmol/L (22-29); Chloride 115 mmol/L (98-107); Estimated GFR-MDRD 83; Glucose 110 mg/dL (70-105); Potassium 3.9 mmol/L (3.5-5.1); Sodium 136 mmol/L (136-145)
[2020-01-14] MEDS: traMADol HCl 50 MG TAB PO PRN ×2 (09:11→15:41)
[2020-01-14] MEDS: Pantoprazole 40 MG VIAL IVP SCH ×2 (09:11→21:17)
[2020-01-14] MEDS: Sodium Bicarbonate Tab 325 MG TAB PO SCH ×2 (09:11→21:17)
[2020-01-14] MEDS: Cholestyramine/Aspartame 4 gm Packet PO SCH ×2 (09:12→23:40)
--- NOTE | 2020-01-14 12:15 | PRG ---
DATE OF SERVICE: 01/14/2020 SUBJECTIVE: Mr. Méndez is feeling a little better today. No abdominal pain. OBJECTIVE: VITAL SIGNS: Temperature 98.9, pulse 75, and blood pressure 91/52. GENERAL: He is in no acute distress. Alert and oriented x3. LUNGS: Clear to auscultation bilaterally. HEART: Regular rate and rhythm without murmur. ABDOMEN: Soft, nontender, and nondistended. Bowel sounds are present. EXTREMITIES: He has 1+ lower extremity edema below the knees. LABORATORY DATA: White blood cell count 12.3, hemoglobin 8.6, and platelets 399. Potassium is up to 3.9 and creatinine 0.99. BNP was 415. IMPRESSION: 1. Crohn disease. He has ulceration around his anastomosis and the ulceration extends around 3 cm up into the terminal ileum, but otherwise the colonic mucosa appeared normal and the small bowel mucosa appeared normal. Biopsies are pending. He also has perianal disease with stricture of the anus and ulceration at the dentate line circumferentially. I dilated this digitally during the time of the colonoscopy to allow passage of the colonoscope. He has had 2 small bowel resections and more recently had a right hemicolectomy. We will treat him with a course of prednisone, but more importantly, he will need to follow up in the office, so he can be initiated on a biologic. He is on Medicare, but does not have direct drug coverage. An infusion biologic might be covered by Medicare. Again, this will require outpatient efforts to get these drugs approved and initiated. I discussed this with his parents who are on a conference call as well. Again, the importance of outpatient followup was stressed. 2. Diarrhea and severe malnutrition and malabsorption with a weight loss from 115 pounds down to 90 pounds. I think that the diarrhea more likely than just due to active Crohn's might be due to malabsorption related to his bowel resection and potentially bile salt diarrhea. If we treat him with scheduled cholestyramine, then the diarrhea could markedly improve along with his nutritional status. 3. Severe hypokalemia secondary to the diarrhea, it is improving with repletion. 4. Esophageal stricture. Findings were consistent with eosinophilic esophagitis; however, Crohn's of the esophagus could also be a possibility. Biopsies are pending. The steroids will potentially help with this. We will also treat with proton pump inhibitor. RECOMMENDATIONS: 1. Proton pump inhibitor twice daily. 2. Await histopathology. 3. Prednisone 40 mg daily for 7 days, 30 mg daily for 7 days, 20 mg daily for 7 days, 10 mg daily for 7 days, 5 mg daily for 7 days, and then discontinue. 4. Cholestyramine 4 g p.o. twice daily. 5. We will monitor him in the hospital for another couple of days at least to see if his diarrhea and nutritional status can improve with the cholestyramine and steroids. 6. Follow up in the office with Dr. Baltazar. 7. Continue to follow his electrolytes and blood counts. 8. His hemoglobin has improved with 1 unit transfusion. He has obvious iron deficiency with a ferritin less than 2. Consider giving IV iron while he is here. 9. I will transition for methylprednisolone today to prednisone tomorrow. 10. Continue proton pump inhibitor. Job ID: [id number]
[2020-01-14 14:37] VITALS: BMI 14.0
[2020-01-14] MEDS ORDERED: Iron Sucrose Complex 200 MG in Sodium Chloride 0.9% 250 ML 250 ML IVPB SCH (15:45)
[2020-01-14] MEDS ORDERED: Iron, Sodium Ferric Gluconate 250 MG in Sodium Chloride 0.9% 100 ML IVPB SCH (17:00)
[2020-01-14] MEDS ORDERED: D5W-AA 4.25% with LYTES 1,000 ML BAG IV SCH (17:15)
[2020-01-14] MEDS: Calcium Carbonate 600 MG + Vit D TAB PO SCH (18:54)
[2020-01-14] MEDS ORDERED: diphenhydrAMINE 50 MG/ML VIAL IVP PRN (20:04)
[2020-01-14] MEDS: D5W-AA 4.25% with LYTES 1,000 ML BAG IV SCH (20:26)
[2020-01-14] MEDS: Enoxaparin Sodium 30 MG/0.3 ML SYRINGE SC SCH (21:17)
[2020-01-14] MEDS: HYDROcodone/Acetaminophen 5/325 mg Tablet PO PRN (21:18)
--- NOTE | 2020-01-14 22:32 | PDOC.HOSPP ---
- Subjective Encounter Date: 01/14/20 Encounter Time: 14:00 Subjective: Patient seen and examined for diarrhea. Feels gen weak. Appetite poor. Abd pain+ . No new complaints. No overnight events - Objective Vital Signs & Weight: Vital Signs (12 hours) Temp Pulse Pulse Pulse Resp BP BP 01/14/20 20:30 97.9 F 124 H 20 01/14/20 14:51 98.4 F 62 18 01/14/20 13:54 75 71 104/67 84/52 L 01/14/20 11:50 97.5 F L 72 13 BP BP Pulse Ox 01/14/20 20:30 98/64 99 01/14/20 14:51 96/62 98 01/14/20 13:54 01/14/20 11:50 89/50 L 96 Weight Admit Weight 90 lb 9.6 oz Weight 94 lb 14.4 oz I&O: 01/13/20 01/14/20 01/15/20 06:59 06:59 06:59 Intake Total 8100 2350 Output Total 650 502 Balance 7450 1848 Result Diagrams: 01/14/20 03:53 01/14/20 03:53 Additional Labs: Accuchecks 01/14/20 01/14/20 01/14/20 21:21 16:33 11:24 POC Glucose 128 H 147 H 144 H 01/14/20 01/13/20 01/12/20 05:24 08:20 20:08 POC Glucose 154 H 67 L 52 L* 01/12/20 16:25 POC Glucose 56 L* Hospitalist ROS - Review of Systems Respiratory: denies: cough, dry, shortness of breath, hemoptysis, SOB with excertion, pleuritic pain, sputum, wheezing, other Cardiovascular: denies: chest pain, palpitations, orthopnea, paroxysmal noc. dyspnea, edema, light headedness, other - Medication Medications: Active Medications Generic Name Dose Route Start Last Admin Trade Name Freq PRN Reason Stop Dose Admin Hydrocodone Bitart/Acetaminophen 1 tab 01/10/20 17:27 01/14/20 21:18 [place] 5/325 PO 1 tab Q4H PRN Administration Moderate Pain (4-6) Amino Acids/Electrolytes/Dextrose 1,000 ml 01/14/20 17:45 01/14/20 20:26 Clinimix E 4.25/5 IV 1,000 ml Q24H [place] Administration Calcium/Vitamin D 1 tab 01/14/20 17:00 01/14/20 18:54 Caltrate 600 + Vit D PO 1 tab BID-WM [place] Administration Cholestyramine Resin 4 gm 01/13/20 10:00 01/14/20 09:12 Questran Light PO 4 gm 1000,2200 [place] Administration Dextrose/Water 25 gm 01/10/20 17:27 01/13/20 05:53 Dextrose 50% SLOW IVP 25 gm PRN PRN Administration Hypoglycemia Diphenhydramine HCl 50 mg 01/11/20 12:26 01/11/20 12:50 Benadryl PO 50 mg Q6H PRN Administration Itching & Insomnia Diphenhydramine HCl 50 mg 01/14/20 20:04 01/14/20 20:26 Benadryl IVP 01/17/20 20:05 50 mg ONE PRN Administration Itching Enoxaparin Sodium 30 mg 01/12/20 21:00 01/14/20 21:17 Lovenox SC 30 mg 2100 [place] Administration Dextrose/Water 1,000 mls @ 0 mls/hr 01/10/20 17:27 01/12/20 17:55 D5w IV 1,000 mls .Q0M PRN Administration Hypoglycemia As Directed Ferric Sodium Gluconate 120 mls @ 60 mls/hr 01/14/20 17:00 01/14/20 17:13 Complex 250 mg/ Sodium IVPB 01/16/20 18:59 120 mls Chloride 1700 [place] Administration Methylprednisolone Sodium Succinate 20 mg 01/13/20 12:00 01/14/20 20:26 Solu-Medrol IVP 01/15/20 05:00 20 mg 0400,1200,2000 [place] Administration Pantoprazole Sodium 40 mg 01/10/20 21:00 01/14/20 21:17 Protonix IVP 40 mg Q12HR [place] Administration Potassium Chloride 20 meq 01/12/20 08:00 01/14/20 17:15 Klor-Con PO 20 meq TID-WM [place] Administration Sodium Bicarbonate 325 mg 01/13/20 09:00 01/14/20 21:17 Bicarbonate, Sodium PO 325 mg BID [place] Administration Sodium Chloride 10 ml 01/11/20 08:54 01/14/20 20:27 Flush - Normal Saline IVF 10 ml PRN PRN Administration Saline Flush Tramadol HCl 100 mg 01/10/20 17:29 01/14/20 15:41 Ultram PO 100 mg Q6HR PRN Administration Pain - Exam General Appearance: NAD Neck: supple, no JVD Heart: RRR, no gallops Respiratory: CTAB, no rales Gastrointestinal: soft, no guarding, no rigidity, tender to palpation (mild - gen) Extremities: no cyanosis, no clubbing Hosp A/P - Plan DVT proph w/lovenox, DVT proph w/SCDs Abd pain due to Crohns disease exacerbation Iron def Anemia s/p 1 unit PRBC Severe PEM Hypokalemia Diarrhea GERD Anxiety PLAN: Cont Steroids Cont PPI Start PPN AM labs Pain control
[2020-01-15] MEDS: traMADol HCl 50 MG TAB PO PRN ×3 (03:56→20:11)
[2020-01-15] MEDS: methylPREDNISolone Sod Succ 40 MG VIAL IVP SCH (03:56)
[2020-01-15 05:12] LABS: Albumin 2.4 g/dL (3.5-5.0); Anion Gap 11 mmol/L (10-20); BUN (Urea Nitrogen) 12 mg/dL (8.9-20.6); BUN/Creatinine Ratio 10.43; Calc. Creatinine Clearance 51 mL/min (70-130); Calcium 7.7 mg/dL (7.8-10.44); Carbon Dioxide 13 mmol/L (22-29); Chloride 115 mmol/L (98-107); Estimated GFR-MDRD 70; Glucose 164 mg/dL (70-105); Magnesium 1.5 mg/dL (1.6-2.6); Phosphorus 2.2 mg/dL (2.3-4.7); Sodium 134 mmol/L (136-145)
[2020-01-15] MEDS: HYDROcodone/Acetaminophen 5/325 mg Tablet PO PRN ×2 (05:54→23:38)
[2020-01-15] MEDS: HumaLOG 300 UNITS/3 ML VIAL SC PRN (06:03)
[2020-01-15 06:36] LABS: Hemoglobin 8.5 g/dL (14.0-18.0); Platelet Count 392 thou/uL (130-400)
[2020-01-15] MEDS ORDERED: Magnesium Sulfate 4 GM in Sodium Chloride 0.9% 250 ML 250 ML IVPB SCH (08:30)
--- NOTE | 2020-01-15 08:33 | PDOC.HOSPP ---
- Subjective Encounter Date: 01/15/20 Encounter Time: 16:00 Subjective: Patient seen and examined for IBD flare. Abd pain improving. No N/V. No new complaints. No overnight events - Objective Vital Signs & Weight: Vital Signs (12 hours) Temp Pulse Resp BP Pulse Ox 01/15/20 07:25 97.5 F L 76 18 116/71 98 01/15/20 04:00 98.0 F 80 20 103/61 96 01/15/20 00:30 97.7 F 72 16 101/56 L 99 Weight Admit Weight 90 lb 9.6 oz Weight 94 lb 14.4 oz I&O: 01/14/20 01/15/20 01/16/20 06:59 06:59 06:59 Intake Total 2350 240 1569 Output Total 502 Balance 5127 188 8997 Result Diagrams: 01/15/20 06:18 01/15/20 04:18 Additional Labs: Accuchecks 01/15/20 01/14/20 01/14/20 06:02 21:21 16:33 POC Glucose 169 H 128 H 147 H 01/14/20 01/13/20 11:24 08:20 POC Glucose 144 H 67 L Laboratory Tests 01/15/20 04:18 Phosphorus 2.2 L Magnesium 1.5 L Hospitalist ROS - Review of Systems Respiratory: denies: cough, dry, shortness of breath, hemoptysis, SOB with excertion, pleuritic pain, sputum, wheezing, other Cardiovascular: denies: chest pain, palpitations, orthopnea, paroxysmal noc. dyspnea, edema, light headedness, other - Medication Medications: Active Medications Generic Name Dose Route Start Last Admin Trade Name Freq PRN Reason Stop Dose Admin Hydrocodone Bitart/Acetaminophen 1 tab 01/10/20 17:27 01/15/20 05:54 [place] 5/325 PO 1 tab Q4H PRN Administration Moderate Pain (4-6) Amino Acids/Electrolytes/Dextrose 1,000 ml 01/14/20 17:45 01/14/20 20:26 Clinimix E 4.25/5 IV 1,000 ml Q24H [place] Administration Calcium/Vitamin D 1 tab 01/14/20 17:00 01/14/20 18:54 Caltrate 600 + Vit D PO 1 tab BID-WM [place] Administration Cholestyramine Resin 4 gm 01/13/20 10:00 01/14/20 23:40 Questran Light PO 4 gm 1000,2200 [place] Administration Dextrose/Water 25 gm 01/10/20 17:27 01/13/20 05:53 Dextrose 50% SLOW IVP 25 gm PRN PRN Administration Hypoglycemia Diphenhydramine HCl 50 mg 01/11/20 12:26 01/11/20 12:50 Benadryl PO 50 mg Q6H PRN Administration Itching & Insomnia Diphenhydramine HCl 50 mg 01/14/20 20:04 01/14/20 20:26 Benadryl IVP 01/17/20 20:05 50 mg ONE PRN Administration Itching Enoxaparin Sodium 30 mg 01/12/20 21:00 01/14/20 21:17 Lovenox SC 30 mg 2100 [place] Administration Dextrose/Water 1,000 mls @ 0 mls/hr 01/10/20 17:27 01/12/20 17:55 D5w IV 1,000 mls .Q0M PRN Administration Hypoglycemia As Directed Ferric Sodium Gluconate 120 mls @ 60 mls/hr 01/14/20 17:00 01/14/20 17:13 Complex 250 mg/ Sodium IVPB 01/16/20 18:59 120 mls Chloride 1700 [place] Administration Insulin Human Lispro 0 units 01/10/20 17:27 01/15/20 06:03 Humalog SC 2 unit .MILD SLIDING SCALE PRN Administration Mild Correctional Scale Pantoprazole Sodium 40 mg 01/10/20 21:00 01/14/20 21:17 Protonix IVP 40 mg Q12HR [place] Administration Sodium Chloride 10 ml 01/11/20 08:54 01/14/20 20:27 Flush - Normal Saline IVF 10 ml PRN PRN Administration Saline Flush Tramadol HCl 100 mg 01/10/20 17:29 01/15/20 03:56 Ultram PO 100 mg Q6HR PRN Administration Pain - Exam General Appearance: NAD Heart: RRR, no gallops Respiratory: no wheezes, no ronchi Gastrointestinal: soft, no guarding, no rigidity Extremities: no cyanosis Neurological: no new deficit Hosp A/P - Plan DVT proph w/lovenox, DVT proph w/SCDs Abd pain/diarrhea due to Crohns disease exacerbation -on Steroids -on Cholestyramine Iron def Anemia -s/p 1 unit PRBC -on IV iron Severe PEM -on PPN Hypokalemia/Hypomagnesemia/Hypophosphatemia Metabolic acidosis due to diarrhea GERD -on PPI Anxiety PLAN: Cont Steroids Replace Phosphorus/Magnesium 3 amp of bicarb x 1 Increase PO sodium bicarb Cont PPI Cont PPN AM labs Pain control Add Ensure cont other meds as above
[2020-01-15] MEDS ORDERED: Sodium Phosphate 15 MMOL in Sodium Chloride 0.9% 250 ML 250 ML IVPB SCH (08:45)
[2020-01-15] MEDS ORDERED: Sodium Bicarbonate 150 MEQ in Dextrose 5% in Water 500 ML IV SCH (08:45)
[2020-01-15] MEDS: predniSONE 20 MG TAB PO SCH (08:59)
[2020-01-15] MEDS: Calcium Carbonate 600 MG + Vit D TAB PO SCH ×2 (08:59→17:52)
[2020-01-15] MEDS: Multivit, Therapeutic 1 TAB PO SCH (08:59)
[2020-01-15] MEDS: Pantoprazole 40 MG VIAL IVP SCH ×2 (09:00→20:12)
[2020-01-15] MEDS: Thiamine 100 MG TAB PO SCH (09:00)
[2020-01-15] MEDS: Sodium Bicarbonate Tab 325 MG TAB PO SCH ×2 (09:00→20:11)
[2020-01-15] MEDS: Folic Acid 1 MG TAB PO SCH (09:00)
[2020-01-15] MEDS: Cholestyramine/Aspartame 4 gm Packet PO SCH ×2 (09:18→20:15)
--- NOTE | 2020-01-15 10:07 | PRG ---
DATE OF SERVICE: 01/15/2020 SUBJECTIVE: Evans had perceived transfusion reaction with IV iron yesterday, received some Benadryl, all the swelling has resolved. He had some abdominal cramping pain in the lower abdomen last night and had to receive some pain medication for that. Otherwise, he is transitioned to prednisone today and has been on cholestyramine for the day. He says his bowel movements have significantly slowed down, though he is not sure whether that is due to the pain medication or not. There is no blood in the stool. Labs are stable. OBJECTIVE: VITAL SIGNS: Temperature 97.5, pulse 76, blood pressure 116/71, 98% oxygen saturation on room air. GENERAL: No acute distress, sitting up in bed comfortably. HEART: Regular rate and rhythm. LUNGS: Clear to auscultation bilaterally. ABDOMEN: Soft. Bowel sounds are present. Nontender to palpation. EXTREMITIES: No peripheral edema. LABORATORY DATA: Hemoglobin is stable at 8.5, hematocrit 28.1, platelets 392. Sodium 134, potassium 5.0, BUN 12, creatinine 1.15, glucose 169, albumin 2.4. Viral hepatitis serologies are all negative. Duodenal esophageal ileal and colon biopsies are all pending. ASSESSMENT AND PLAN: 1. Crohn disease with small bowel and perianal involvement. 2. Esophagitis, suspicious for eosinophilic esophagitis, biopsies are pending. He was started on a PPI. 3. Iron-deficiency anemia. He had iron infusion, though he had an infusion reaction that has now resolved. Hemoglobin stable today. 4. Malnutrition. The patient has been receiving TPN. No new recommendations from a GI perspective today. He is transitioned to prednisone today, so continue the prednisone taper as outlined by Dr. No. He needs close followup in the GI outpatient clinic with Dr. Baltazar and will likely need to get back on a biologic agent. Outstanding biopsies can be followed up on an outpatient basis as well. Given the patient's ongoing pain symptoms, it would be reasonable to see how he does with both this and the diarrhea for another day, consider discharge tomorrow if he remains clinically stable. Job ID: [id number]
[2020-01-15] MEDS: Enoxaparin Sodium 30 MG/0.3 ML SYRINGE SC SCH (20:13)
[2020-01-16] MEDS: diphenhydrAMINE 50 MG CAP PO PRN ×2 (01:53→17:58)
[2020-01-16 04:34] LABS: Hemoglobin 7.8 g/dL (14.0-18.0); Platelet Count 367 thou/uL (130-400)
[2020-01-16 04:51] LABS: Albumin 2.7 g/dL (3.5-5.0); Anion Gap 8 mmol/L (10-20); BUN (Urea Nitrogen) 15 mg/dL (8.9-20.6); BUN/Creatinine Ratio 16.85; Calc. Creatinine Clearance 66 mL/min (70-130); Calcium 7.7 mg/dL (7.8-10.44); Carbon Dioxide 22 mmol/L (22-29); Chloride 114 mmol/L (98-107); Estimated GFR-MDRD Greater than 90; Glucose 119 mg/dL (70-105); Magnesium 2.2 mg/dL (1.6-2.6); Potassium 4.3 mmol/L (3.5-5.1); Sodium 140 mmol/L (136-145)
[2020-01-16 04:53] LABS: Phosphorus 1.9 mg/dL (2.3-4.7)
[2020-01-16] MEDS ORDERED: Sodium Phosphate 30 MMOL in Sodium Chloride 0.9% 250 ML 250 ML IVPB SCH (05:30)
[2020-01-16] MEDS: traMADol HCl 50 MG TAB PO PRN ×3 (05:35→20:36)
[2020-01-16] MEDS: D5W-AA 4.25% with LYTES 1,000 ML BAG IV SCH ×2 (05:42→11:50)
--- NOTE | 2020-01-16 08:35 | PDOC.HOSPP ---
- Subjective Encounter Date: 01/16/20 Encounter Time: 14:45 Subjective: Patient seen and examined for IBD flare. Just now had a large bloody BM. feels lightheaded. No other complaints. No overnight events - Objective Vital Signs & Weight: Weight Admit Weight 90 lb 9.6 oz Weight 94 lb 14.4 oz I&O: 01/15/20 01/16/20 01/17/20 06:59 06:59 06:59 Intake Total 240 1569 Balance 240 1569 Result Diagrams: 01/16/20 04:23 01/16/20 04:23 Additional Labs: Accuchecks 01/15/20 01/15/20 01/15/20 21:02 16:05 11:48 POC Glucose 115 H 147 H 155 H Laboratory Tests 01/11/20 01/16/20 18:24 04:23 Phosphorus 1.9 L IgA Total 418.00 Hospitalist ROS - Review of Systems Respiratory: denies: cough, dry, shortness of breath, hemoptysis, SOB with excertion, pleuritic pain, sputum, wheezing, other Cardiovascular: denies: chest pain, palpitations, orthopnea, paroxysmal noc. dyspnea, edema, light headedness, other Gastrointestinal: reports: abdominal pain, hematochezia. denies: nausea, vomiting, diarrhea, constipation, melena, other - Medication Medications: Active Medications Generic Name Dose Route Start Last Admin Trade Name Freq PRN Reason Stop Dose Admin Hydrocodone Bitart/Acetaminophen 1 tab 01/10/20 17:27 01/15/20 23:38 [place] 5/325 PO 1 tab Q4H PRN Administration Moderate Pain (4-6) Amino Acids/Electrolytes/Dextrose 1,000 ml 01/14/20 17:45 01/16/20 05:42 Clinimix E 4.25/5 IV Not Given Q24H [place] Calcium/Vitamin D 1 tab 01/14/20 17:00 01/15/20 17:52 Caltrate 600 + Vit D PO 1 tab BID-WM [place] Administration Cholestyramine Resin 4 gm 01/13/20 10:00 01/15/20 20:15 Questran Light PO Not Given 1000,2200 [place] Dextrose/Water 25 gm 01/10/20 17:27 01/13/20 05:53 Dextrose 50% SLOW IVP 25 gm PRN PRN Administration Hypoglycemia Diphenhydramine HCl 50 mg 01/11/20 12:26 01/16/20 01:53 Benadryl PO 50 mg Q6H PRN Administration Itching & Insomnia Diphenhydramine HCl 50 mg 01/14/20 20:04 01/14/20 20:26 Benadryl IVP 01/17/20 20:05 50 mg ONE PRN Administration Itching Enoxaparin Sodium 30 mg 01/12/20 21:00 01/15/20 20:13 Lovenox SC 30 mg 2100 [place] Administration Folic Acid 1 mg 01/15/20 09:00 01/15/20 09:00 Folvite PO 1 mg DAILY [place] Administration Dextrose/Water 1,000 mls @ 0 mls/hr 01/10/20 17:27 01/12/20 17:55 D5w IV 1,000 mls .Q0M PRN Administration Hypoglycemia As Directed Sodium Phosphate 30 mmol/ 260 mls @ 43.333 mls/hr 01/16/20 05:30 01/16/20 05: 35 Sodium Chloride IVPB 01/16/20 11:29 260 mls NOW [place] Administration Insulin Human Lispro 0 units 01/10/20 17:27 01/15/20 06:03 Humalog SC 2 unit .MILD SLIDING SCALE PRN Administration Mild Correctional Scale Multivitamins 1 tab 01/15/20 09:00 01/15/20 08:59 Theragran PO 1 tab DAILY [place] Administration Pantoprazole Sodium 40 mg 01/10/20 21:00 01/15/20 20:12 Protonix IVP 40 mg Q12HR [place] Administration Prednisone 40 mg 01/15/20 08:00 01/15/20 08:59 Prednisone PO 40 mg QAM-WM [place] Administration Sodium Bicarbonate 650 mg 01/15/20 08:30 01/15/20 20:11 Bicarbonate, Sodium PO 650 mg BID [place] Administration Sodium Chloride 10 ml 01/10/20 17:30 01/15/20 09:01 Normal Saline Pf FS 10 ml PRN PRN Administration RECONSTITUTION Sodium Chloride 10 ml 01/11/20 08:54 01/14/20 20:27 Flush - Normal Saline IVF 10 ml PRN PRN Administration Saline Flush Thiamine HCl 100 mg 01/15/20 09:00 01/15/20 09:00 Thiamine PO 100 mg DAILY [place] Administration Tramadol HCl 100 mg 01/10/20 17:29 01/16/20 05:35 Ultram PO 100 mg Q6HR PRN Administration Pain - Exam General Appearance: ill appearing Neck: supple, no JVD Heart: RRR, no gallops Respiratory: no wheezes, no ronchi Gastrointestinal: soft, non-distended, tender to palpation (mild - gen) Extremities: no cyanosis Hosp A/P - Plan DVT proph w/SCDs GI bleeding (new 01/15) Abd pain/diarrhea due to Crohns disease exacerbation -improving -on Steroids -on Cholestyramine Iron def Anemia -s/p 1 unit PRBC Severe PEM -on PPN Hypokalemia/Hypomagnesemia/Hypophosphatemia Metabolic acidosis due to diarrhea GERD -on PPI Anxiety PLAN: STAT H/H IV NS bolus Transfuse if Hb <7 Cont Prednisone Replace Phosphorus Reduce Sodium bicarb to 325 BID Cont PPI Cont PPN AM labs Pain control Cont Ensure cont other meds as above
[2020-01-16] MEDS: predniSONE 20 MG TAB PO SCH (08:57)
[2020-01-16] MEDS: Thiamine 100 MG TAB PO SCH (08:57)
[2020-01-16] MEDS: Multivit, Therapeutic 1 TAB PO SCH (08:57)
[2020-01-16] MEDS: Folic Acid 1 MG TAB PO SCH (08:57)
[2020-01-16] MEDS: Calcium Carbonate 600 MG + Vit D TAB PO SCH ×2 (08:58→16:22)
[2020-01-16] MEDS: Sodium Bicarbonate Tab 325 MG TAB PO SCH ×2 (08:58→20:30)
[2020-01-16] MEDS: Cholestyramine/Aspartame 4 gm Packet PO SCH ×2 (08:59→20:31)
[2020-01-16] MEDS: Pantoprazole 40 MG VIAL IVP SCH ×2 (09:00→20:32)
[2020-01-16] MEDS: HYDROcodone/Acetaminophen 5/325 mg Tablet PO PRN ×3 (09:00→23:37)
[2020-01-16] MEDS: PHOS-NAK 1 PKT PACK PO SCH ×2 (11:49→16:22)
[2020-01-16] MEDS ORDERED: Sodium Chloride 0.9% 500 ML IV SCH (15:30)
[2020-01-16 15:52] LABS: Hemoglobin 7.2 g/dL (14.0-18.0); Platelet Count 372 thou/uL (130-400)
[2020-01-16 17:36] LABS: QuantiFERON-TB Gold Plus Negative (Negative)
--- NOTE | 2020-01-16 18:03 | PRG ---
DATE OF SERVICE: 01/16/2020 SUBJECTIVE: The patient is ambulating in humph[place] and has been sitting out of bed. He still has bloody bowel movement, firmer and less on cholestyramine. He denies abdominal pain. He denies having any nausea vomiting. He is tolerating all the p.o. intake. He has been swallowing better since esophageal dilatation. PHYSICAL EXAMINATION: VITAL SIGNS: Temperature is 98.0, blood pressure 100/50, pulse of 66. GENERAL: He is alert, conversant, cachectic, but in no distress. HEENT: Shows anicteric sclerae. Oropharynx is clear and moist. NECK: Supple. CV: Shows normal S1, S2. Regular rate and rhythm. CHEST: Shows breath sounds. ABDOMEN: Soft and flat. No distention. No tympany. He has active bowel sounds. No tenderness. EXTREMITY: Shows no edema. LABORATORY DATA: Hemoglobin 7.8 (8.5 yesterday), platelet count 367. Glucose has been ranging in the 110s. ASSESSMENT: 1. Long history of small-bowel Crohn's disease with 2 prior small bowel resection and ileectomy and right hemicolectomy in 2015. The patient moved away in 2013 and has been lost to follow up from the practice and has not been on any form of treatment for Crohn's during that time except for acute hospitalization. He was treated previously on Humira and intermittent Remicade. Currently, the patient has ulcerations in the ileocolonic anastomosis, evidence of perirectal disease with stricture and ulcer, and Crohn's esophagitis as there is no evidence of eosinophilic esophagitis on biopsy. Clinically, he is stable, currently on prednisone 40 mg daily. 2. Ubiep-pr-rqvuysu anemia, multifactorial. 3. Weight loss with malnutrition. RECOMMENDATION: 1. The patient can be discharged to home in a.m. on prednisone 40 mg daily. I recommend keeping patient on prednisone 40 mg daily until his followup appointment on 01/31/2020 at 4:00 p.m. at which time I will determine his tapering schedule. The patient will need biologic therapy, likely not an anti TNF as he has had this class of medications before. 2. Continue to trend his blood count. 3. Follow up outpatient clinic with me on 01/31/2020 at 4:00 p.m. Job ID: [id number]
--- NOTE | 2020-01-16 18:08 | EKG ---
Test Reason : Blood Pressure : / mmHG Vent. Rate : 091 BPM Atrial Rate : 091 BPM P-R Int : 090 ms QRS Dur : 062 ms QT Int : 344 ms P-R-T Axes : 076 083 079 degrees QTc Int : 423 ms Sinus rhythm with short [place] Biatrial enlargement Abnormal ECG No previous ECGs available Confirmed by PIO LEAVITT (2) on 01/16/2020 6:07:48 PM Referred By: NICOLE Confirmed By:PIO LEAVITT
[2020-01-17] MEDS: traMADol HCl 50 MG TAB PO PRN ×3 (03:46→22:05)
[2020-01-17 04:12] LABS: Hemoglobin 7.4 g/dL (14.0-18.0); Platelet Count 306 thou/uL (130-400)
[2020-01-17 04:38] LABS: Phosphorus 2.9 mg/dL (2.3-4.7)
[2020-01-17 05:00] LABS: Albumin 2.6 g/dL (3.5-5.0); Anion Gap 4 mmol/L (10-20); BUN (Urea Nitrogen) 21 mg/dL (8.9-20.6); Calc. Creatinine Clearance 71 mL/min (70-130); Calcium 7.7 mg/dL (7.8-10.44); Carbon Dioxide 31 mmol/L (22-29); Chloride 109 mmol/L (98-107); Estimated GFR-MDRD Greater than 90; Glucose 90 mg/dL (70-105); Magnesium 1.9 mg/dL (1.6-2.6); Phosphorus 2.9 mg/dL (2.3-4.7); Potassium 5.3 mmol/L (3.5-5.1); Sodium 139 mmol/L (136-145)
[2020-01-17] MEDS: HYDROcodone/Acetaminophen 5/325 mg Tablet PO PRN ×3 (06:23→19:59)
[2020-01-17] MEDS: D5W-AA 4.25% with LYTES 1,000 ML BAG IV SCH (06:25)
[2020-01-17] MEDS: Multivit, Therapeutic 1 TAB PO SCH (08:59)
[2020-01-17] MEDS: Thiamine 100 MG TAB PO SCH (08:59)
[2020-01-17] MEDS: Folic Acid 1 MG TAB PO SCH (08:59)
[2020-01-17] MEDS: predniSONE 20 MG TAB PO SCH (08:59)
[2020-01-17] MEDS: Calcium Carbonate 600 MG + Vit D TAB PO SCH ×2 (08:59→19:59)
[2020-01-17] MEDS: Sodium Bicarbonate Tab 325 MG TAB PO SCH (08:59)
[2020-01-17] MEDS: Pantoprazole 40 MG VIAL IVP SCH ×2 (09:01→20:00)
[2020-01-17] MEDS: Cholestyramine/Aspartame 4 gm Packet PO SCH ×2 (09:01→20:00)
[2020-01-17 12:24] LABS: Hemoglobin 7.2 g/dL (14.0-18.0); Platelet Count 237 thou/uL (130-400)
[2020-01-17 12:45] LABS: Anion Gap 9 mmol/L (10-20); BUN (Urea Nitrogen) 22 mg/dL (8.9-20.6); Calc. Creatinine Clearance 73 mL/min (70-130); Carbon Dioxide 28 mmol/L (22-29); Chloride 108 mmol/L (98-107); Estimated GFR-MDRD Greater than 90; Glucose 114 mg/dL (70-105); Potassium 5.8 mmol/L (3.5-5.1); Sodium 139 mmol/L (136-145)
--- NOTE | 2020-01-17 14:15 | PDOC.HOSPP ---
- Subjective Encounter Date: 01/17/20 Encounter Time: 10:00 Subjective: Patient seen and examined for GI bleed. Had hematochezia earlier. Feels lightheaded. No new complaints. No overnight events - Objective Vital Signs & Weight: Vital Signs (12 hours) Temp Pulse Resp BP BP BP BP 01/17/20 08:15 97.9 F 79 18 99/57 L 01/17/20 04:11 79 16 102/56 L 102/56 L 01/17/20 04:10 98.4 F 54 L 16 98/53 L 01/17/20 03:49 98.4 F 57 L 16 101/62 Pulse Ox 01/17/20 08:15 99 01/17/20 04:11 01/17/20 04:10 98 01/17/20 03:49 98 Weight Admit Weight 90 lb 9.6 oz Weight 94 lb 14.4 oz I&O: 01/16/20 01/17/20 01/18/20 06:59 06:59 06:59 Intake Total 1569 2250 Balance 1569 2250 Result Diagrams: 01/18/20 04:00 01/18/20 04:00 Additional Labs: Accuchecks 01/16/20 01/16/20 20:34 15:47 POC Glucose 149 H 134 H Hospitalist ROS - Review of Systems Respiratory: denies: cough, dry, shortness of breath, hemoptysis, SOB with excertion, pleuritic pain, sputum, wheezing, other Cardiovascular: denies: chest pain, palpitations, orthopnea, paroxysmal noc. dyspnea, edema, light headedness, other Gastrointestinal: reports: hematochezia. denies: nausea, vomiting, abdominal pain, diarrhea, constipation, melena, other - Medication Medications: Active Medications Generic Name Dose Route Start Last Admin Trade Name Freq PRN Reason Stop Dose Admin Hydrocodone Bitart/Acetaminophen 1 tab 01/10/20 17:27 01/17/20 06:23 [place] 5/325 PO 1 tab Q4H PRN Administration Moderate Pain (4-6) Calcium/Vitamin D 1 tab 01/14/20 17:00 01/17/20 08:59 Caltrate 600 + Vit D PO 1 tab BID-WM [place] Administration Cholestyramine Resin 4 gm 01/13/20 10:00 01/17/20 09:01 Questran Light PO 4 gm 1000,2200 [place] Administration Dextrose/Water 25 gm 01/10/20 17:27 01/13/20 05:53 Dextrose 50% SLOW IVP 25 gm PRN PRN Administration Hypoglycemia Diphenhydramine HCl 50 mg 01/11/20 12:26 01/16/20 17:58 Benadryl PO 50 mg Q6H PRN Administration Itching & Insomnia Diphenhydramine HCl 50 mg 01/14/20 20:04 01/14/20 20:26 Benadryl IVP 01/17/20 20:05 50 mg ONE PRN Administration Itching Folic Acid 1 mg 01/15/20 09:00 01/17/20 08:59 Folvite PO 1 mg DAILY [place] Administration Dextrose/Water 1,000 mls @ 0 mls/hr 01/10/20 17:27 01/12/20 17:55 D5w IV 1,000 mls .Q0M PRN Administration Hypoglycemia As Directed Insulin Human Lispro 0 units 01/10/20 17:27 01/15/20 06:03 Humalog SC 2 unit .MILD SLIDING SCALE PRN Administration Mild Correctional Scale Multivitamins 1 tab 01/15/20 09:00 01/17/20 08:59 Theragran PO 1 tab DAILY [place] Administration Pantoprazole Sodium 40 mg 01/10/20 21:00 01/17/20 09:01 Protonix IVP 40 mg Q12HR [place] Administration Prednisone 40 mg 01/15/20 08:00 01/17/20 08:59 Prednisone PO 40 mg QAM-WM [place] Administration Sodium Chloride 10 ml 01/10/20 17:30 01/15/20 09:01 Normal Saline Pf FS 10 ml PRN PRN Administration RECONSTITUTION Sodium Chloride 10 ml 01/11/20 08:54 01/14/20 20:27 Flush - Normal Saline IVF 10 ml PRN PRN Administration Saline Flush Thiamine HCl 100 mg 01/15/20 09:00 01/17/20 08:59 Thiamine PO 100 mg DAILY [place] Administration Tramadol HCl 100 mg 01/10/20 17:29 01/17/20 03:46 Ultram PO 100 mg Q6HR PRN Administration Pain - Exam General Appearance: NAD Heart: RRR, no gallops Respiratory: no wheezes, no ronchi Gastrointestinal: soft, non-distended, no guarding, no rigidity Extremities: no cyanosis Neurological: no new deficit Hosp A/P - Plan DVT proph w/SCDs GI bleeding -uncontrolled -s/p 1 unit PRBC Abd pain/diarrhea due to Crohns disease exacerbation -improving -on Steroids -on Cholestyramine Acute blood loss anemia/Iron def Anemia - POA -s/p 1 unit PRBC Severe PEM -s/p PPN -appetite improving Hypokalemia/Hypomagnesemia/Hypophosphatemia/Hyperkalemia Metabolic acidosis due to diarrhea GERD -on PPI Anxiety Tobacco dep -counselled PLAN: Recheck H/H - 7.2 DC PPN due to hyperkalemia Start IV NS Will transfuse 1 unit PRBC Cont Prednisone Cont PPI AM labs Pain control Cont Ensure cont other meds as above
[2020-01-17] MEDS: Dextrose 5 % And 0.9 % NaCl 1,000 ML IV SCH (14:30)
[2020-01-17] MEDS: diphenhydrAMINE 25 MG CAP PO PRN ×2 (14:55→22:05)
[2020-01-17 16:37] LABS: EliA Celiac New Method **** NEW METHOD ****; t-Transglutaminase (tTG) IgA 1.1 EliAU/mL (<7 Negative)
[2020-01-17] MEDS: HumaLOG 300 UNITS/3 ML VIAL SC PRN (16:47)
[2020-01-17] MEDS: PHOS-NAK 1 PKT PACK PO SCH (16:48)
--- NOTE | 2020-01-17 19:04 | PQF ---
DIANN MORENO MALIK MD [id number] CLINICAL DOCUMENTATION IMPROVEMENT CLARIFICATION FORM: ICD-10 Updated PLEASE DO AN ADDENDUM TO THE PROGRESS NOTE WITH ANY DOCUMENTATION UPDATES OR ADDITIONS AND CARRY THROUGH TO DC SUMMARY. THANK YOU. DATE: 01/17/2020 ATTN:DR. Lolis CHUA Please exercise your independent, professional judgment in responding to the clarification form. Clinical indicators are provided on the bottom of this form for your review. Please check appropriate box(s): [ ] Acute blood loss anemia [ ] Chronic Anemia: [ ] Blood loss [ ] Hemolytic [ ] Simple [ ] Due to Vitamin B12 Deficiency [ ] Other [ ] Anemia of Chronic Disease (please specify) [ ] Postoperative blood loss anemia [ ] Other diagnosis [ ] Unable to determine In addition, please specify: Present on Admission (POA): [ ] Yes [ ] No [ ] Unable to determine For continuity of documentation, please document condition throughout progress notes and discharge summary. Thank You. CLINICAL INDICATORS - SIGNS / SYMPTOMS / LABS / RESULTS AND LOCATION IN EMR 01/15 HgB 7.8 > 7.2 > 7.4 > 7.2 01/15 PN (LADHA) JUST NOW HAD A LARGE BLOODY BM. FEELS LIGHTHEADED. A/P: GI BLEEDING (NEW 01/15) ABD PAIN/DIARRHEA DUE TO CROHN DISEASE EXACERBATION 01/16 GI BLEEDING- UNCONTROLLED, S/P 1 UNIT PRBC RISK: ACUTE ON CHRONIC ANEMIA, MULTIFACTORIAL (PN/MCCANN) 01/14 IRON DEFICIENCY ANEMIA , GI BLEED, (PN/LADHA) 01/15 SEVERE MALNUTRITION (PN/RIVAS) 01/13, , EGD/COLONOSCOPY WITH BIOPSY DONE ON TREATMENTS: SERIAL H&H LABS BLOOD TRANSFUSION X 3 UNITS ( 01/10, 01/15 ) THANK YOU! TYLER (This form is maintained as a part of the permanent medical record) 2014 [employer]. All Rights Reserved [email or web address]
[2020-01-17 19:47] LABS: Hemoglobin 7.8 g/dL (14.0-18.0)
[2020-01-17] MEDS: methylPREDNISolone Sod Succ 40 MG VIAL IVP SCH (20:03)
[2020-01-17 20:07] LABS: Anion Gap 7 mmol/L (10-20); BUN (Urea Nitrogen) 22 mg/dL (8.9-20.6); Calc. Creatinine Clearance 76 mL/min (70-130); Calcium 7.5 mg/dL (7.8-10.44); Carbon Dioxide 29 mmol/L (22-29); Chloride 109 mmol/L (98-107); Estimated GFR-MDRD Greater than 90; Glucose 112 mg/dL (70-105); Potassium 5.7 mmol/L (3.5-5.1); Sodium 139 mmol/L (136-145)
[2020-01-17] MEDS ORDERED: Iron, Sodium Ferric Gluconate 250 MG in Sodium Chloride 0.9% 100 ML IVPB SCH (20:15)
--- NOTE | 2020-01-17 20:30 | PRG ---
DATE OF SERVICE: 01/17/2020 SUBJECTIVE: Mr. Méndez is having copious frequent small stools with blood. He is not really improving. He has no overt tenesmus or pain. He has no fever or chills. He is tolerating a low-fiber diet. He did receive a unit of blood today and one last night. MEDICATIONS: He is on: 1. Cholestyramine. 2. Prednisone 40 mg orally. 3. Hydrocodone. 4. D5NS at 50. 5. Insulin sliding scale. 6. Protonix IV. 7. Thiamine. 8. Multivitamin. 9. Folic acid. PHYSICAL EXAMINATION: GENERAL: He is resting comfortably in bed. He is thin and frail, but in good spirits. No distress. VITAL SIGNS: Temperature 98, pulse 84, respirations 13, saturations 94%, blood pressure 107/61. ABDOMEN: Soft and nontender. LUNGS: Clear. HEART: Regular rhythm. SKIN: No rashes or lesions. LABORATORY DATA: Hemoglobin 7.8 at 1940 hours. Sodium 139, potassium 5.8, BUN and creatinine are 22 and 0.8, phosphorus was 2.9 today, albumin is 2.6 today, magnesium is 1.9 today, glucose 114. On admission, ferritin was 2, B12 was 348, folate was 12. ASSESSMENT: 1. Severe anemia related to chronic inflammatory disease and severe iron deficiency. I would recommend starting some IV iron and will order that today. 2. Ongoing bleeding. This seemed to worsen after he was switched from IV steroids. He was on just for a couple of days. He came in on Tuesday. I will go ahead and restart that. Stop the oral iron. 3. If bleeding persists, we will consider flex sig and cautery. 4. We will check a sedimentation rate and also a CMV DNA. 5. We will talk with pharmacist tomorrow about getting him started on Stelara while here in the hospital. His QuantiFERON has been negative. 6. We will continue to monitor H and H and repeat labs in the morning. Job ID: [id number] MTDD
[2020-01-18] MEDS: HYDROcodone/Acetaminophen 5/325 mg Tablet PO PRN ×3 (01:49→22:57)
[2020-01-18] MEDS: traMADol HCl 50 MG TAB PO PRN ×3 (04:44→17:11)
[2020-01-18] MEDS: methylPREDNISolone Sod Succ 40 MG VIAL IVP SCH ×3 (04:44→22:59)
[2020-01-18 05:24] LABS: ALT (SGPT) 159 U/L (8-55); AST (SGOT) 119 U/L (5-34); Albumin 2.4 g/dL (3.5-5.0); Alkaline Phosphatase 137 U/L (40-110); Anion Gap 7 mmol/L (10-20); BUN (Urea Nitrogen) 18 mg/dL (8.9-20.6); BUN/Creatinine Ratio 22.22; Bilirubin, Total 0.3 mg/dL (0.2-1.2); Calc. Creatinine Clearance 72 mL/min (70-130); Calcium 7.5 mg/dL (7.8-10.44); Carbon Dioxide 26 mmol/L (22-29); Chloride 108 mmol/L (98-107); Estimated GFR-MDRD Greater than 90; Glucose 132 mg/dL (70-105); Magnesium 1.6 mg/dL (1.6-2.6); Phosphorus 2.1 mg/dL (2.3-4.7); Potassium 5.4 mmol/L (3.5-5.1); Protein, Total 4.4 g/dL (6.0-8.3); Sodium 136 mmol/L (136-145)
[2020-01-18 06:30] LABS: #Eosinphils 0.1 thou/uL (0.0-0.7); #Lymphocytes 1.2 thou/uL (1.20-3.40); #Monocytes 0.5 thou/uL (0.11-0.59); #Neutrophils 12.1 thou/uL (1.40-6.50); %Eosinophils 0.4 % (0.0-10.0); %Lymphocytes 8.7 % (21.0-51.0); %Monocytes 3.9 % (0.0-10.0); Elliptocytes SLIGHT = 2-5 cells (100X) (0-1/hpf); Hemoglobin 7.3 g/dL (14.0-18.0); Hypochromia MODERATE=16-30 cells (100X) (0-5/hpf); MDiff Complete? YES; Mean Corpuscular HGB CONC 30.7 g/dL (32.0-36.0); Mean Corpuscular Hemoglobin 24.1 pg (27.0-31.0); Mean Corpuscular Volume 78.6 fL (78.0-98.0); Mean Platelet Volume 8.5 fL (7.4-10.4); Platelet Count 286 thou/uL (130-400); Red Blood Cell (RBC) Count 3.02 mill/uL (4.70-6.10); White Blood Cell (WBC) Count 13.9 thou/uL (4.8-10.8)
[2020-01-18] MEDS: Calcium Carbonate 600 MG + Vit D TAB PO SCH ×2 (08:41→17:11)
[2020-01-18] MEDS: Folic Acid 1 MG TAB PO SCH (08:41)
[2020-01-18] MEDS: Pantoprazole 40 MG VIAL IVP SCH ×2 (08:43→21:50)
[2020-01-18] MEDS: Multivit, Therapeutic 1 TAB PO SCH (08:43)
[2020-01-18] MEDS: Thiamine 100 MG TAB PO SCH (08:43)
[2020-01-18] MEDS: Dextrose 5 % And 0.9 % NaCl 1,000 ML IV SCH (08:44)
[2020-01-18] MEDS: Cholestyramine/Aspartame 4 gm Packet PO SCH ×2 (09:46→21:51)
--- NOTE | 2020-01-18 12:15 | PDOC.HOSPP ---
- Subjective Encounter Date: 01/18/20 Encounter Time: 12:12 Subjective: Patient seen and examined for IBD flare. Still has intermittent bloody loose stool. No new complaints. No overnight events - Objective Vital Signs & Weight: Vital Signs (12 hours) Temp Pulse Resp BP BP BP BP 01/18/20 07:53 98.3 F 72 18 101/53 L 01/18/20 04:55 83 16 98/54 L 100/59 L 01/18/20 04:51 98.4 F 59 L 16 99/53 L Pulse Ox 01/18/20 07:53 97 01/18/20 04:55 01/18/20 04:51 99 Weight Admit Weight 90 lb 9.6 oz Weight 94 lb 14.4 oz I&O: 01/17/20 01/18/20 01/19/20 06:59 06:59 06:59 Intake Total 2250 900 Balance 2250 900 Result Diagrams: 01/18/20 04:00 01/18/20 04:00 Additional Labs: Accuchecks 01/18/20 01/18/20 01/17/20 10:58 04:51 16:44 POC Glucose 166 H 176 H 161 H 01/17/20 11:42 POC Glucose 196 H Hospitalist ROS - Review of Systems ENT: denies: ear pain, ear discharge, nose pain, nose discharge, nose congestion , mouth pain, mouth swelling, throat pain, throat swelling, other Respiratory: denies: cough, dry, shortness of breath, hemoptysis, SOB with excertion, pleuritic pain, sputum, wheezing, other - Medication Medications: Active Medications Generic Name Dose Route Start Last Admin Trade Name Freq PRN Reason Stop Dose Admin Hydrocodone Bitart/Acetaminophen 1 tab 01/10/20 17:27 01/18/20 08:41 [place] 5/325 PO 1 tab Q4H PRN Administration Moderate Pain (4-6) Calcium/Vitamin D 1 tab 01/14/20 17:00 01/18/20 08:41 Caltrate 600 + Vit D PO 1 tab BID-WM [place] Administration Cholestyramine Resin 4 gm 01/13/20 10:00 01/18/20 09:46 Questran Light PO 4 gm 1000,2200 [place] Administration Dextrose/Water 25 gm 01/10/20 17:27 01/13/20 05:53 Dextrose 50% SLOW IVP 25 gm PRN PRN Administration Hypoglycemia Diphenhydramine HCl 25 mg 01/17/20 14:28 01/17/20 22:05 Benadryl PO 25 mg Q6H PRN Administration Itching & Insomnia Folic Acid 1 mg 01/15/20 09:00 01/18/20 08:41 Folvite PO 1 mg DAILY [place] Administration Dextrose/Water 1,000 mls @ 0 mls/hr 01/10/20 17:27 01/12/20 17:55 D5w IV 1,000 mls .Q0M PRN Administration Hypoglycemia As Directed Dextrose/Sodium Chloride 1,000 mls @ 50 mls/hr 01/17/20 13:30 01/18/20 08:44 D5 0.9% Ns IV 1,000 mls .Q20H [place] Administration Insulin Human Lispro 0 units 01/10/20 17:27 01/17/20 16:47 Humalog SC 2 unit .MILD SLIDING SCALE PRN Administration Mild Correctional Scale Methylprednisolone Sodium Succinate 40 mg 01/17/20 22:00 01/18/20 04:44 Solu-Medrol IVP 40 mg Q8HR [place] Administration Multivitamins 1 tab 01/15/20 09:00 01/18/20 08:43 Theragran PO 1 tab DAILY [place] Administration Pantoprazole Sodium 40 mg 01/10/20 21:00 01/18/20 08:43 Protonix IVP 40 mg Q12HR [place] Administration Sodium Chloride 10 ml 01/10/20 17:30 01/15/20 09:01 Normal Saline Pf FS 10 ml PRN PRN Administration RECONSTITUTION Sodium Chloride 10 ml 01/11/20 08:54 01/14/20 20:27 Flush - Normal Saline IVF 10 ml PRN PRN Administration Saline Flush Thiamine HCl 100 mg 01/15/20 09:00 01/18/20 08:43 Thiamine PO 100 mg DAILY [place] Administration Tramadol HCl 100 mg 01/10/20 17:29 01/18/20 04:44 Ultram PO 100 mg Q6HR PRN Administration Pain - Exam General Appearance: NAD Heart: RRR, no gallops Respiratory: no wheezes, no ronchi Gastrointestinal: non-tender, normal bowel sounds Extremities: no cyanosis Psychiatric: normal affect, A&O x 3 Hosp A/P - Plan DVT proph w/SCDs GI bleeding -uncontrolled -s/p 1 unit PRBC Abd pain/diarrhea due to Crohns disease exacerbation -improving -on IV Steroids -on Cholestyramine Acute blood loss anemia/Iron def Anemia - POA -s/p 3 unit PRBC Severe PEM -s/p PPN -appetite slowly improving Hypokalemia/Hypomagnesemia/Hypophosphatemia/Hyperkalemia Metabolic acidosis due to diarrhea GERD -on PPI Anxiety Tobacco dep -counselled PLAN: Recheck H/H at 1400 Cont IVF Cont IV Steroids Cont PPI Pain control Cont Ensure cont other meds as above AM labs
[2020-01-18 16:16] LABS: Hemoglobin 7.1 g/dL (14.0-18.0); Platelet Count 277 thou/uL (130-400)
--- NOTE | 2020-01-18 16:40 | PRG ---
DATE OF SERVICE: 01/18/2020 SUBJECTIVE: Mr. Méndez is eating diet, but he is still having some bleeding. OBJECTIVE: VITAL SIGNS: Temperature is 98, pulse 72, blood pressure 101/53. ABDOMEN: Nontender. GENERAL: He is alert and oriented to person, place, and time. LABORATORY DATA: White count 13,000; hemoglobin 7.3; platelet count 286, down from 584 on admission. Sedimentation rate was 2. Sodium 136; potassium 5.3; BUN and creatinine are 18 and 0.8; phosphorus 3.1, replaced; calcium 7.5; magnesium 1.6; bilirubin 0.3; AST and ALT 119 and 159; alkaline phosphatase 137; glucose 166. ASSESSMENT AND PLAN: 1. Severe Crohn's, multiple surgeries in the past, off medicine therapy for extended period of time. He cannot take Humira or Remicade secondary to prior exposure and lost response. We will place order to see if we can get him started on Stelara infusions here, and prior to wait for approval, in the meantime, continue IV steroids. 2. With regard to his bleeding, we will put him on a clear liquid diet, n.p.o. after midnight. Plan for flexible sigmoidoscopy tomorrow and see if there is anything to cauterize. Job ID: [id number]
[2020-01-18] MEDS ORDERED: Magnesium Citrate 300 ML BOT PO SCH (19:45)
[2020-01-19] MEDS: traMADol HCl 50 MG TAB PO PRN ×3 (01:03→14:14)
[2020-01-19] MEDS: HYDROcodone/Acetaminophen 5/325 mg Tablet PO PRN ×3 (02:51→19:33)
[2020-01-19] MEDS: methylPREDNISolone Sod Succ 40 MG VIAL IVP SCH ×3 (05:42→20:56)
[2020-01-19 07:43] LABS: Hemoglobin 7.5 g/dL (14.0-18.0); Platelet Count 329 thou/uL (130-400)
[2020-01-19 07:57] LABS: Anion Gap 8 mmol/L (10-20); BUN (Urea Nitrogen) 14 mg/dL (8.9-20.6); Calc. Creatinine Clearance 78 mL/min (70-130); Calcium 8.1 mg/dL (7.8-10.44); Carbon Dioxide 27 mmol/L (22-29); Chloride 108 mmol/L (98-107); Estimated GFR-MDRD Greater than 90; Glucose 62 mg/dL (70-105); Potassium 5.2 mmol/L (3.5-5.1); Sodium 138 mmol/L (136-145)
[2020-01-19] MEDS: Dextrose 5 % And 0.9 % NaCl 1,000 ML IV SCH ×2 (08:12→14:13)
[2020-01-19] MEDS: Calcium Carbonate 600 MG + Vit D TAB PO SCH (08:12)
[2020-01-19] MEDS: Pantoprazole 40 MG VIAL IVP SCH ×2 (08:13→19:33)
[2020-01-19] MEDS: Folic Acid 1 MG TAB PO SCH (08:13)
[2020-01-19] MEDS: Multivit, Therapeutic 1 TAB PO SCH (08:13)
[2020-01-19] MEDS: Thiamine 100 MG TAB PO SCH (08:13)
[2020-01-19] MEDS: Cholestyramine/Aspartame 4 gm Packet PO SCH ×2 (10:00→20:56)
[2020-01-19] MEDS ORDERED: Ustekinumab 390 MG in Sodium Chloride 0.9% 250 ML 172 ML IV SCH (13:15)
[2020-01-19] MEDS ORDERED: Lidocaine 1% PF 5 ML VIAL ONE (13:41)
--- NOTE | 2020-01-19 14:24 | PDOC.HOSPP ---
- Subjective Encounter Date: 01/19/20 Encounter Time: 13:30 Subjective: Patient seen and examined for Abd pain/GI bleeding. s/p flex sig. No new hematochezia. Diarrhea +. No new complaints. No overnight events - Objective Vital Signs & Weight: Vital Signs (12 hours) Temp Pulse Resp BP BP BP BP 01/19/20 14:00 97.3 F L 83 18 119/67 01/19/20 13:39 97.6 F 95 18 114/64 01/19/20 13:08 97.8 F 63 18 101/56 L 01/19/20 12:32 97.6 F 56 L 18 102/63 01/19/20 08:00 98.5 F 72 18 101/54 L 01/19/20 05:01 88 16 103/66 01/19/20 05:00 72 16 93/56 L 01/19/20 04:59 97.8 F 62 20 104/58 L Pulse Ox 01/19/20 14:00 100 01/19/20 13:39 100 01/19/20 13:08 100 01/19/20 12:32 100 01/19/20 08:00 100 01/19/20 05:01 01/19/20 05:00 01/19/20 04:59 98 Weight Admit Weight 90 lb 9.6 oz Weight 94 lb 14.4 oz I&O: 01/18/20 01/19/20 01/20/20 06:59 06:59 06:59 Intake Total 900 1600 Balance 900 1600 Result Diagrams: 01/19/20 07:32 01/19/20 07:32 Hospitalist ROS - Review of Systems Respiratory: denies: cough, dry, shortness of breath, hemoptysis, SOB with excertion, pleuritic pain, sputum, wheezing, other Cardiovascular: denies: chest pain, palpitations, orthopnea, paroxysmal noc. dyspnea, edema, light headedness, other - Medication Medications: Active Medications Generic Name Dose Route Start Last Admin Trade Name Freq PRN Reason Stop Dose Admin Hydrocodone Bitart/Acetaminophen 1 tab 01/10/20 17:27 01/19/20 07:41 [place] 5/325 PO 1 tab Q4H PRN Administration Moderate Pain (4-6) Cholestyramine Resin 4 gm 01/13/20 10:00 01/19/20 10:00 Questran Light PO Not Given 1000,2200 [place] Dextrose/Water 25 gm 01/10/20 17:27 01/13/20 05:53 Dextrose 50% SLOW IVP 25 gm PRN PRN Administration Hypoglycemia Diphenhydramine HCl 25 mg 01/17/20 14:28 01/17/20 22:05 Benadryl PO 25 mg Q6H PRN Administration Itching & Insomnia Folic Acid 1 mg 01/15/20 09:00 01/19/20 08:13 Folvite PO Not Given DAILY [place] Dextrose/Water 1,000 mls @ 0 mls/hr 01/10/20 17:27 01/12/20 17:55 D5w IV 1,000 mls .Q0M PRN Administration Hypoglycemia As Directed Dextrose/Sodium Chloride 1,000 mls @ 50 mls/hr 01/17/20 13:30 01/19/20 14:13 D5 0.9% Ns IV 1,000 mls .Q20H [place] Administration Methylprednisolone Sodium Succinate 40 mg 01/17/20 22:00 01/19/20 14:14 Solu-Medrol IVP 40 mg Q8HR [place] Administration Multivitamins 1 tab 01/15/20 09:00 01/19/20 08:13 Theragran PO Not Given DAILY [place] Pantoprazole Sodium 40 mg 01/10/20 21:00 01/19/20 08:13 Protonix IVP Not Given Q12HR [place] Sodium Chloride 10 ml 01/10/20 17:30 01/15/20 09:01 Normal Saline Pf FS 10 ml PRN PRN Administration RECONSTITUTION Sodium Chloride 10 ml 01/11/20 08:54 01/14/20 20:27 Flush - Normal Saline IVF 10 ml PRN PRN Administration Saline Flush Thiamine HCl 100 mg 01/15/20 09:00 01/19/20 08:13 Thiamine PO Not Given DAILY [place] Tramadol HCl 50 mg 01/18/20 12:11 01/19/20 14:14 Ultram PO 50 mg Q4H PRN Administration Moderate Pain (4-6) - Exam General Appearance: NAD Heart: RRR, no gallops Respiratory: no wheezes, no ronchi Gastrointestinal: non-tender, non-distended Extremities: no cyanosis Neurological: no new deficit Hosp A/P - Plan DVT proph w/SCDs GI bleeding -s/p flex sig / Abd pain/diarrhea due to Crohns disease exacerbation -improving -on IV Steroids -on Cholestyramine Acute blood loss anemia/Iron def Anemia - POA -s/p 3 unit PRBC Severe PEM -s/p PPN -appetite slowly improving Hypokalemia/Hypomagnesemia/Hypophosphatemia/Hyperkalemia Metabolic acidosis due to diarrhea GERD -on PPI Anxiety Tobacco dep -counselled PLAN: Cont IV Steroids Cont PPI Pain control cont other meds as above Monitor HH DC IVF when tolerating PO
--- NOTE | 2020-01-19 19:11 | OP ---
DATE OF PROCEDURE: 01/19/2020 PROCEDURES PERFORMED: Flexible sigmoidoscopy with control of hemorrhage. PREOPERATIVE DIAGNOSES: Crohn disease, extensive with anastomotic ulcers, erosions, and anal strictures and ulcers with ongoing continuous slow ooze requiring transfusion despite IV steroids. HEMOGLOBIN: Stable at 7.5 today. Sedimentation rate 2. POSTOPERATIVE DIAGNOSES: Diffuse ulceration, stricturing of the anorectal area with slight oozing, pinpoint oozing from visible vessels cauterized with a 6-Austrian or 7-Austrian heater probe. Bleeding controlled. ANESTHESIA: TIVA. DESCRIPTION OF PROCEDURE: After the patient was informed of the risks, benefits, and possible complications of endoscopy including perforation, bleeding, reaction to medication, and aspiration, informed consent was obtained. The patient was brought to the endoscopy suite where he was sedated in gradual fashion. Once he was comfortable, rectal exam was performed, which revealed stricture at anal canal and the anus. There was friable tissue and ulceration present in the rectum. The endoscope was advanced to the anal canal into the sigmoid, where there was formed stool noted. There was no blood coming from above. There was oozing at the of blood from multiple areas at the anorectal verge. These were cauterized with 7-Austrian heater probe and bleeding was controlled. The scope was removed. The patient tolerated the procedure well and without complications. RECOMMENDATIONS: Low residue diet. Colace daily. Continue IV steroids. We will place order for starting Stelara. Job ID: [id number]
[2020-01-20] MEDS: HYDROcodone/Acetaminophen 5/325 mg Tablet PO PRN ×5 (02:10→20:37)
[2020-01-20 04:21] LABS: Anion Gap 9 mmol/L (10-20); BUN (Urea Nitrogen) 12 mg/dL (8.9-20.6); Calc. Creatinine Clearance 70 mL/min (70-130); Calcium 7.1 mg/dL (7.8-10.44); Carbon Dioxide 26 mmol/L (22-29); Chloride 107 mmol/L (98-107); Estimated GFR-MDRD Greater than 90; Glucose 152 mg/dL (70-105); Sodium 137 mmol/L (136-145)
[2020-01-20 04:53] LABS: #Lymphocytes 0.9 thou/uL (1.20-3.40); #Monocytes 0.5 thou/uL (0.11-0.59); #Neutrophils 12.4 thou/uL (1.40-6.50); %Basophils 0.1 % (0.0-1.0); %Eosinophils 0.3 % (0.0-10.0); %Lymphocytes 6.2 % (21.0-51.0); %Monocytes 3.5 % (0.0-10.0); Anisocytosis MODERATE=16-30 cells (100X) (0-5/hpf); Hemoglobin 7.1 g/dL (14.0-18.0); Hypochromia SLIGHT = 6-15 cells (100X) (0-5/hpf); MDiff Complete? YES; Mean Corpuscular HGB CONC 31.7 g/dL (32.0-36.0); Mean Corpuscular Hemoglobin 25.4 pg (27.0-31.0); Mean Platelet Volume 8.5 fL (7.4-10.4); Platelet Count 313 thou/uL (130-400); Platelet Morphology Comment Appears Adequate; Polychromasia SLIGHT = 2-3 cells (100X) (0-2/hpf); RBC Distribution Width 22.2 % (11.5-14.5); Red Blood Cell (RBC) Count 2.79 mill/uL (4.70-6.10); White Blood Cell (WBC) Count 13.8 thou/uL (4.8-10.8)
[2020-01-20] MEDS: methylPREDNISolone Sod Succ 40 MG VIAL IVP SCH ×3 (05:53→23:27)
[2020-01-20] MEDS: Folic Acid 1 MG TAB PO SCH (09:45)
[2020-01-20] MEDS: Multivit, Therapeutic 1 TAB PO SCH (09:45)
[2020-01-20] MEDS: Thiamine 100 MG TAB PO SCH (09:45)
[2020-01-20] MEDS: Pantoprazole 40 MG VIAL IVP SCH ×2 (09:46→19:47)
[2020-01-20] MEDS: Cholestyramine/Aspartame 4 gm Packet PO SCH ×2 (09:46→23:26)
[2020-01-20] MEDS: Dextrose 5 % And 0.9 % NaCl 1,000 ML IV SCH (10:01)
--- NOTE | 2020-01-20 12:47 | PRG ---
DATE OF SERVICE: 01/20/2020 SUBJECTIVE: Mr. Méndez has had less bleeding. He still has diarrhea after meals. He feels better. He does have some cramping in the lower abdomen. OBJECTIVE: VITAL SIGNS: Temperature is 98, pulse 80, blood pressure is 108/65. GENERAL: He is frail and thin, pale. LUNGS: Clear. HEART: . ABDOMEN: Soft and nontender. LABORATORY DATA: Today, white count 13.8, hemoglobin 7.1, platelet count 313. 90 segs, no bands. Sodium 137, potassium 5, BUN and creatinine of 12 and 0.8. QuantiFERON, negative. Hepatitis A, B, C, negative. ASSESSMENT: 1. Crohn's, severe with multiple previous surgeries, treatment with anti-TNF's. He has been off medicines for several years before he was admitted here. He has rectal ulcerations and anastomotic stricture at the small bowel ascending colon anastomosis. He improved initially with IV steroids and these were stopped. He was placed on p.o. He worsened. IV steroid has been restarted. He is going to need to start a biologic therapy and he needs to be started here in the hospital as we can get him out. 2. Rectal bleeding. This is improved after cautery of the rectal ulcer yesterday. 3. CMV is pending. We will follow up on that. I discussed with the patient's nurse. Job ID: [id number]
--- NOTE | 2020-01-20 13:23 | PDOC.HOSPP ---
- Subjective Encounter Date: 01/20/20 Encounter Time: 12:15 Subjective: Patient seen and examined for GI bleeding due to IBD. Diarrhea +. No new hematochezia. No new complaints. No overnight events - Objective Vital Signs & Weight: Weight Admit Weight 90 lb 9.6 oz Weight 94 lb 14.4 oz I&O: 01/19/20 01/20/20 01/21/20 06:59 06:59 06:59 Intake Total 1600 1500 Balance 1600 1500 Result Diagrams: 01/20/20 03:26 01/20/20 03:26 Hospitalist ROS - Review of Systems Respiratory: denies: cough, dry, shortness of breath, hemoptysis, SOB with excertion, pleuritic pain, sputum, wheezing, other Cardiovascular: denies: chest pain, palpitations, orthopnea, paroxysmal noc. dyspnea, edema, light headedness, other - Medication Medications: Active Medications Generic Name Dose Route Start Last Admin Trade Name Freq PRN Reason Stop Dose Admin Hydrocodone Bitart/Acetaminophen 1 tab 01/10/20 17:27 01/20/20 09:58 [place] 5/325 PO 1 tab Q4H PRN Administration Moderate Pain (4-6) Cholestyramine Resin 4 gm 01/13/20 10:00 01/20/20 09:46 Questran Light PO 4 gm 1000,2200 [place] Administration Dextrose/Water 25 gm 01/10/20 17:27 01/13/20 05:53 Dextrose 50% SLOW IVP 25 gm PRN PRN Administration Hypoglycemia Diphenhydramine HCl 25 mg 01/17/20 14:28 01/17/20 22:05 Benadryl PO 25 mg Q6H PRN Administration Itching & Insomnia Folic Acid 1 mg 01/15/20 09:00 01/20/20 09:45 Folvite PO 1 mg DAILY [place] Administration Dextrose/Water 1,000 mls @ 0 mls/hr 01/10/20 17:27 01/12/20 17:55 D5w IV 1,000 mls .Q0M PRN Administration Hypoglycemia As Directed Dextrose/Sodium Chloride 1,000 mls @ 50 mls/hr 01/17/20 13:30 01/20/20 10:01 D5 0.9% Ns IV 1,000 mls .Q20H [place] Administration Methylprednisolone Sodium Succinate 40 mg 01/17/20 22:00 07/05/20 05:53 Solu-Medrol IVP 40 mg Q8HR [place] Administration Multivitamins 1 tab 01/15/20 09:00 01/20/20 09:45 Theragran PO 1 tab DAILY [place] Administration Pantoprazole Sodium 40 mg 01/10/20 21:00 01/20/20 09:46 Protonix IVP 40 mg Q12HR [place] Administration Sodium Chloride 10 ml 01/10/20 17:30 01/15/20 09:01 Normal Saline Pf FS 10 ml PRN PRN Administration RECONSTITUTION Sodium Chloride 10 ml 01/11/20 08:54 01/14/20 20:27 Flush - Normal Saline IVF 10 ml PRN PRN Administration Saline Flush Thiamine HCl 100 mg 01/15/20 09:00 01/20/20 09:45 Thiamine PO 100 mg DAILY [place] Administration Tramadol HCl 50 mg 01/18/20 12:11 01/19/20 14:14 Ultram PO 50 mg Q4H PRN Administration Moderate Pain (4-6) - Exam General Appearance: NAD Heart: RRR, no gallops Respiratory: no wheezes, no ronchi Gastrointestinal: soft, non-tender, normal bowel sounds Extremities: no cyanosis Neurological: no new deficit Hosp A/P - Plan DVT proph w/SCDs GI bleeding -s/p flex sig with cautery 01/18 Abd pain/diarrhea due to Crohns disease exacerbation -improving -on IV Steroids -on Cholestyramine Acute blood loss anemia/Iron def Anemia -s/p 3 unit PRBC -s/p IV iron Severe PEM -s/p PPN -appetite slowly improving Hypokalemia/Hypomagnesemia/Hypophosphatemia/Hyperkalemia Metabolic acidosis due to diarrhea GERD -on PPI Anxiety Tobacco dep -counselled PLAN: Cont IV Steroids Cont PPI Await Stelara Await CMV Pain control cont other meds as above AM labs DC IVF when tolerating PO
[2020-01-20] MEDS: traMADol HCl 50 MG TAB PO PRN (19:45)
[2020-01-21] MEDS: HYDROcodone/Acetaminophen 5/325 mg Tablet PO PRN ×5 (00:54→19:35)
[2020-01-21] MEDS: traMADol HCl 50 MG TAB PO PRN ×5 (03:09→21:34)
[2020-01-21 04:23] LABS: Hemoglobin 7.7 g/dL (14.0-18.0); Platelet Count 398 thou/uL (130-400)
[2020-01-21 04:52] LABS: Anion Gap 11 mmol/L (10-20); BUN (Urea Nitrogen) 11 mg/dL (8.9-20.6); Calc. Creatinine Clearance 67 mL/min (70-130); Calcium 7.5 mg/dL (7.8-10.44); Carbon Dioxide 23 mmol/L (22-29); Chloride 109 mmol/L (98-107); Estimated GFR-MDRD Greater than 90; Glucose 146 mg/dL (70-105); Sodium 138 mmol/L (136-145)
[2020-01-21] MEDS: methylPREDNISolone Sod Succ 40 MG VIAL IVP SCH ×2 (05:09→14:30)
[2020-01-21] MEDS: Dextrose 5 % And 0.9 % NaCl 1,000 ML IV SCH (06:02)
[2020-01-21] MEDS: Folic Acid 1 MG TAB PO SCH (09:12)
[2020-01-21] MEDS: Thiamine 100 MG TAB PO SCH (09:12)
[2020-01-21] MEDS: Multivit, Therapeutic 1 TAB PO SCH (09:12)
[2020-01-21] MEDS: Pantoprazole 40 MG VIAL IVP SCH ×2 (09:13→19:36)
[2020-01-21] MEDS: Cholestyramine/Aspartame 4 gm Packet PO SCH ×2 (09:13→21:35)
--- NOTE | 2020-01-21 11:09 | PRG ---
DATE OF SERVICE: 01/21/2020 SUBJECTIVE: Mr. Méndez states he is feeling better, he is having no bleeding, he is still having fairly loose stools, but no pain. OBJECTIVE: VITAL SIGNS: Temperature is 98, pulse 72, blood pressure 113/72. ABDOMEN: Soft and nontender. LUNGS: Clear. GENERAL: He is somewhat pale. LABORATORY DATA: Hemoglobin 7.7 today. Sodium 138, potassium 5, BUN and creatinine are 11 and 0.8. ASSESSMENT: 1. Severe Crohn disease. 2. Rectal bleeding from ulcerations in the rectum from Crohn's, resolved. 3. Anemia, stable. 4. Malnutrition. 5. Steroid dependency. We had to place him back on IV steroids. We will try to wean him back to oral tomorrow. PLAN: I talked with the nurse. It seems that the Pharmacy will get a Stelara infusion done today or tomorrow hopefully. I talked with our nurse to work on getting prior authorization for him to go ahead and be on this as a maintenance therapy now. If he does well with that and he can tolerate oral steroids, hopefully we can get him out in the next day or so. Job ID: [id number]
[2020-01-21] MEDS ORDERED: predniSONE 20 MG TAB PO SCH (11:10)
--- NOTE | 2020-01-21 12:37 | PDOC.HOSPP ---
- Subjective Encounter Date: 01/21/20 Encounter Time: 12:34 Subjective: minimal abd discomfort, no rectal blleding - Objective Vital Signs & Weight: Vital Signs (12 hours) Temp Pulse Resp BP Pulse Ox 01/21/20 08:00 98.3 F 72 16 113/72 96 Weight Admit Weight 90 lb 9.6 oz Weight 94 lb 14.4 oz I&O: 01/20/20 01/21/20 01/22/20 06:59 06:59 06:59 Intake Total 1500 3210 400 Balance 1500 3210 400 Result Diagrams: 01/21/20 03:48 01/21/20 03:48 Hospitalist ROS - Medication Medications: Active Medications Generic Name Dose Route Start Last Admin Trade Name Freq PRN Reason Stop Dose Admin Hydrocodone Bitart/Acetaminophen 1 tab 01/20/20 20:01 01/21/20 09:12 Baldwin 5/325 PO 1 tab Q4H PRN Administration Severe Pain (7-10) Cholestyramine Resin 4 gm 01/13/20 10:00 01/21/20 09:13 Questran Light PO 4 gm 1000,2200 [place] Administration Dextrose/Water 25 gm 01/10/20 17:27 01/13/20 05:53 Dextrose 50% SLOW IVP 25 gm PRN PRN Administration Hypoglycemia Diphenhydramine HCl 25 mg 01/17/20 14:28 01/17/20 22:05 Benadryl PO 25 mg Q6H PRN Administration Itching & Insomnia Folic Acid 1 mg 01/15/20 09:00 01/21/20 09:12 Folvite PO 1 mg DAILY [place] Administration Dextrose/Water 1,000 mls @ 0 mls/hr 01/10/20 17:27 01/12/20 17:55 D5w IV 1,000 mls .Q0M PRN Administration Hypoglycemia As Directed Dextrose/Sodium Chloride 1,000 mls @ 50 mls/hr 01/17/20 13:30 01/21/20 06:02 D5 0.9% Ns IV 1,000 mls .Q20H [place] Administration Methylprednisolone Sodium Succinate 40 mg 01/17/20 22:00 01/21/20 05:09 Solu-Medrol IVP 01/22/20 08:00 40 mg Q8HR [place] Administration Multivitamins 1 tab 01/15/20 09:00 01/21/20 09:12 Theragran PO 1 tab DAILY [place] Administration Pantoprazole Sodium 40 mg 01/10/20 21:00 01/21/20 09:13 Protonix IVP 40 mg Q12HR [place] Administration Prednisone 40 mg 01/21/20 11:10 01/21/20 11:50 Prednisone PO 01/21/20 13:00 40 mg 1110 [place] Administration Sodium Chloride 10 ml 01/10/20 17:30 01/15/20 09:01 Normal Saline Pf FS 10 ml PRN PRN Administration RECONSTITUTION Sodium Chloride 10 ml 01/11/20 08:54 01/14/20 20:27 Flush - Normal Saline IVF 10 ml PRN PRN Administration Saline Flush Thiamine HCl 100 mg 01/15/20 09:00 01/21/20 09:12 Thiamine PO 100 mg DAILY [place] Administration Tramadol HCl 50 mg 01/18/20 12:11 01/21/20 11:45 Ultram PO 50 mg Q4H PRN Administration Moderate Pain (4-6) - Exam General Appearance: awake alert Neck: no JVD Heart: RRR, no murmur Respiratory: CTAB Gastrointestinal: soft, normal bowel sounds, tender to palpation Gastrointestinal - other findings: tenderness is mild Extremities: no edema Hosp A/P (1) Crohn's disease Code(s): K50.90 - CROHN'S DISEASE, UNSPECIFIED, WITHOUT COMPLICATIONS Status: Chronic Qualifiers: Gastrointestinal tract location: small and large intestine Digestive disease complication type: with rectal bleeding Qualified Code(s): K50.811 - Crohn's disease of both small and large intestine with rectal bleeding (2) Rectal hemorrhage due to Crohn's disease Code(s): K50.911 - CROHN'S DISEASE, UNSPECIFIED, WITH RECTAL BLEEDING Status: Acute (3) Anemia due to blood loss, acute Code(s): D62 - ACUTE POSTHEMORRHAGIC ANEMIA Status: Acute (4) Abdominal pain Code(s): R10.9 - UNSPECIFIED ABDOMINAL PAIN Status: Acute Qualifiers: Abdominal location: generalized Qualified Code(s): R10.84 - Generalized abdominal pain (5) Iron deficiency Code(s): E61.1 - IRON DEFICIENCY Status: Acute - Plan cont iv steroids stelara iv discuss with GI
[2020-01-21] MEDS ORDERED: traZODone HCl 50 MG TAB PO PRN (22:55)
[2020-01-21] MEDS ORDERED: traZODone HCl 50 MG TAB PO SCH (23:00)
[2020-01-22] MEDS: HYDROcodone/Acetaminophen 5/325 mg Tablet PO PRN ×6 (00:02→22:49)
[2020-01-22] MEDS: Dextrose 5 % And 0.9 % NaCl 1,000 ML IV SCH ×2 (01:30→20:56)
[2020-01-22] MEDS: traMADol HCl 50 MG TAB PO PRN ×3 (01:58→10:16)
[2020-01-22 04:32] LABS: ALT (SGPT) 158 U/L (8-55); AST (SGOT) 33 U/L (5-34); Albumin 2.2 g/dL (3.5-5.0); Alkaline Phosphatase 122 U/L (40-110); Anion Gap 9 mmol/L (10-20); BUN (Urea Nitrogen) 14 mg/dL (8.9-20.6); Bilirubin, Total 0.2 mg/dL (0.2-1.2); Calc. Creatinine Clearance 64 mL/min (70-130); Calcium 7.6 mg/dL (7.8-10.44); Carbon Dioxide 25 mmol/L (22-29); Chloride 110 mmol/L (98-107); Estimated GFR-MDRD Greater than 90; Globulin 1.8 g/dL (2.4-3.5); Glucose 119 mg/dL (70-105); Potassium 4.9 mmol/L (3.5-5.1); Sodium 139 mmol/L (136-145)
[2020-01-22 05:34] LABS: #Eosinphils 0.3 thou/uL (0.0-0.7); #Lymphocytes 1.4 thou/uL (1.20-3.40); #Monocytes 1.2 thou/uL (0.11-0.59); #Neutrophils 16.9 thou/uL (1.40-6.50); %Basophils 0.2 % (0.0-1.0); %Eosinophils 1.3 % (0.0-10.0); %Lymphocytes 7.1 % (21.0-51.0); %Monocytes 6.1 % (0.0-10.0); %Neutrophils 85.3 % (42.0-75.0); Anisocytosis MARKED = >30 cells (100X) (0-5/hpf); Elliptocytes SLIGHT = 2-5 cells (100X) (0-1/hpf); Hemoglobin 6.7 g/dL (14.0-18.0); MDiff Complete? YES; Mean Corpuscular HGB CONC 29.4 g/dL (32.0-36.0); Mean Platelet Volume 7.6 fL (7.4-10.4); Platelet Count 362 thou/uL (130-400); RBC Distribution Width 27.3 % (11.5-14.5); White Blood Cell (WBC) Count 19.8 thou/uL (4.8-10.8)
[2020-01-22] MEDS: Folic Acid 1 MG TAB PO SCH (08:13)
[2020-01-22] MEDS: Multivit, Therapeutic 1 TAB PO SCH (08:13)
[2020-01-22] MEDS: predniSONE 20 MG TAB PO SCH (08:13)
[2020-01-22] MEDS: Pantoprazole 40 MG VIAL IVP SCH ×2 (08:14→21:01)
[2020-01-22] MEDS: Thiamine 100 MG TAB PO SCH (08:14)
[2020-01-22] MEDS: Cholestyramine/Aspartame 4 gm Packet PO SCH ×2 (10:17→21:01)
--- NOTE | 2020-01-22 11:31 | PDOC.HOSPP ---
- Subjective Encounter Date: 01/22/20 Encounter Time: 11:29 Subjective: continues to have abd discomfort - Objective Vital Signs & Weight: Vital Signs (12 hours) Temp Pulse Resp BP Pulse Ox 01/22/20 07:34 97.5 F L 83 16 117/68 99 Weight Admit Weight 90 lb 9.6 oz Weight 94 lb 14.4 oz I&O: 01/21/20 01/22/20 01/23/20 06:59 06:59 06:59 Intake Total 3210 3320 Balance 3210 3320 Result Diagrams: 01/22/20 03:36 01/22/20 03:36 Hospitalist ROS - Medication Medications: Active Medications Generic Name Dose Route Start Last Admin Trade Name Freq PRN Reason Stop Dose Admin Hydrocodone Bitart/Acetaminophen 1 tab 01/20/20 20:01 01/22/20 08:13 Gleason 5/325 PO 1 tab Q4H PRN Administration Severe Pain (7-10) Cholestyramine Resin 4 gm 01/13/20 10:00 01/22/20 10:17 Questran Light PO 4 gm 1000,2200 [place] Administration Dextrose/Water 25 gm 01/10/20 17:27 01/13/20 05:53 Dextrose 50% SLOW IVP 25 gm PRN PRN Administration Hypoglycemia Diphenhydramine HCl 25 mg 01/17/20 14:28 01/17/20 22:05 Benadryl PO 25 mg Q6H PRN Administration Itching & Insomnia Folic Acid 1 mg 01/15/20 09:00 01/22/20 08:13 Folvite PO 1 mg DAILY [place] Administration Dextrose/Water 1,000 mls @ 0 mls/hr 01/10/20 17:27 01/12/20 17:55 D5w IV 1,000 mls .Q0M PRN Administration Hypoglycemia As Directed Dextrose/Sodium Chloride 1,000 mls @ 50 mls/hr 01/17/20 13:30 01/22/20 01:30 D5 0.9% Ns IV 1,000 mls .Q20H [place] Administration Multivitamins 1 tab 01/15/20 09:00 01/22/20 08:13 Theragran PO 1 tab DAILY [place] Administration Pantoprazole Sodium 40 mg 01/10/20 21:00 01/22/20 08:14 Protonix IVP 40 mg Q12HR [place] Administration Prednisone 40 mg 01/22/20 08:00 01/22/20 08:13 Prednisone PO 40 mg QAM-WM [place] Administration Sodium Chloride 10 ml 01/10/20 17:30 01/15/20 09:01 Normal Saline Pf FS 10 ml PRN PRN Administration RECONSTITUTION Sodium Chloride 10 ml 01/11/20 08:54 01/21/20 19:36 Flush - Normal Saline IVF 10 ml PRN PRN Administration Saline Flush Thiamine HCl 100 mg 01/15/20 09:00 01/22/20 08:14 Thiamine PO 100 mg DAILY [place] Administration Tramadol HCl 50 mg 01/18/20 12:11 01/22/20 10:16 Ultram PO 50 mg Q4H PRN Administration Moderate Pain (4-6) - Exam General Appearance: awake alert Neck: no JVD Heart: RRR, no murmur Respiratory: CTAB, no wheezes, normal chest expansion Gastrointestinal: soft, normal bowel sounds, tender to palpation Extremities: no edema Hosp A/P (1) Crohn's disease Code(s): K50.90 - CROHN'S DISEASE, UNSPECIFIED, WITHOUT COMPLICATIONS Status: Chronic Qualifiers: Gastrointestinal tract location: small and large intestine Digestive disease complication type: with rectal bleeding Qualified Code(s): K50.811 - Crohn's disease of both small and large intestine with rectal bleeding (2) Rectal hemorrhage due to Crohn's disease Code(s): K50.911 - CROHN'S DISEASE, UNSPECIFIED, WITH RECTAL BLEEDING Status: Acute (3) Anemia due to blood loss, acute Code(s): D62 - ACUTE POSTHEMORRHAGIC ANEMIA Status: Acute (4) Abdominal pain Code(s): R10.9 - UNSPECIFIED ABDOMINAL PAIN Status: Acute Qualifiers: Abdominal location: generalized Qualified Code(s): R10.84 - Generalized abdominal pain (5) Iron deficiency Code(s): E61.1 - IRON DEFICIENCY Status: Acute - Plan cont iv steroids stelara iv Hg <7- transfuse 1 unit PRBC daily CBC
[2020-01-22] MEDS: diphenhydrAMINE 25 MG CAP PO PRN (13:35)
--- NOTE | 2020-01-22 15:39 | PRG ---
DATE OF SERVICE: 01/22/2020 SUBJECTIVE: Evans has continued to have diarrhea with blood. He has rectal pain, which lasts 5 to 10 minutes after each bowel movement. Hemoglobin declined further to 6.7 today, so he is getting 1 unit RBC transfusion. I spoke with nursing staff and we were able to get his Stelara infusion done here and that is planned for later this afternoon. He is tolerating his diet. OBJECTIVE: VITAL SIGNS: Temperature 98.5, pulse 83, blood pressure 118/70, and oxygen saturation 96% on room air. GENERAL: Chronically ill, but sitting up in bed comfortably, in no distress. HEART: Regular rate and rhythm. LUNGS: Clear to auscultation bilaterally. ABDOMEN: Soft and nontender to palpation. EXTREMITIES: No peripheral edema. LABORATORY STUDIES: WBC is 19.8, hemoglobin down to 6.7, and platelets 362. Sodium 139, potassium 4.9, BUN is 14, and creatinine 0.91. Total bilirubin 0.2, alkaline phosphatase 122, AST 33, ALT 158, and pre-albumin is 34. ASSESSMENT AND PLAN: 1. Severe Crohn's disease. 2. Rectal bleeding, from rectal ulcerations secondary to Crohn's. 3. Anemia of chronic GI blood loss. The patient required one further unit of RBC transfusion today. 4. Malnutrition. Pre-albumin is actually up to 34. Plan to get Stelara infusion later today. I advised this is certainly best done while he is still inpatient. Maintenance dosing will be arranged on an outpatient basis by subcutaneous injection. As he will be getting his Stelara infusion, continue on the oral prednisone for now. Continue to monitor H and H, further transfusion as needed. Hopefully, the Stelara will be able to work quickly to induce more of a clinical remission. Job ID: [id number]
[2020-01-22] MEDS: Ustekinumab 390 MG in Sodium Chloride 0.9% 250 ML 172 ML IV SCH ×2 (17:25)
[2020-01-23 05:13] LABS: Anion Gap 9 mmol/L (10-20); BUN (Urea Nitrogen) 16 mg/dL (8.9-20.6); Calc. Creatinine Clearance 52 mL/min (70-130); Calcium 7.6 mg/dL (7.8-10.44); Carbon Dioxide 24 mmol/L (22-29); Chloride 111 mmol/L (98-107); Estimated GFR-MDRD 71; Glucose 77 mg/dL (70-105); Potassium 5.3 mmol/L (3.5-5.1); Sodium 139 mmol/L (136-145)
[2020-01-23 08:11] VITALS: BP 132/83; TEMP 99
[2020-01-23] MEDS: Folic Acid 1 MG TAB PO SCH ×2 (09:01→09:02)
[2020-01-23] MEDS: Thiamine 100 MG TAB PO SCH (09:02)
[2020-01-23] MEDS: Cholestyramine/Aspartame 4 gm Packet PO SCH (09:02)
[2020-01-23] MEDS: Pantoprazole 40 MG VIAL IVP SCH (09:02)
[2020-01-23] MEDS: Multivit, Therapeutic 1 TAB PO SCH (09:02)
[2020-01-23] MEDS: predniSONE 20 MG TAB PO SCH (09:02)
--- NOTE | 2020-01-23 09:53 | PDOC.HOSPP ---
- Subjective Encounter Date: 01/23/20 Encounter Time: 09:48 Subjective: recaived stelara . taking no narcotics, diarrhea 6x a day - Objective Vital Signs & Weight: Vital Signs (12 hours) Temp Pulse Resp BP Pulse Ox 01/23/20 08:10 99.0 F 68 18 132/83 98 Weight Admit Weight 90 lb 9.6 oz Weight 94 lb 14.4 oz I&O: 01/22/20 01/23/20 01/24/20 06:59 06:59 06:59 Intake Total 3320 0 Balance 3320 0 Result Diagrams: 01/22/20 03:36 01/23/20 04:33 Hospitalist ROS - Medication Medications: Active Medications Generic Name Dose Route Start Last Admin Trade Name Freq PRN Reason Stop Dose Admin Hydrocodone Bitart/Acetaminophen 1 tab 01/20/20 20:01 01/22/20 22:49 [place] 5/325 PO 1 tab Q4H PRN Administration Severe Pain (7-10) Cholestyramine Resin 4 gm 01/13/20 10:00 01/23/20 09:02 Questran Light PO 4 gm 1000,2200 [place] Administration Dextrose/Water 25 gm 01/10/20 17:27 01/13/20 05:53 Dextrose 50% SLOW IVP 25 gm PRN PRN Administration Hypoglycemia Diphenhydramine HCl 25 mg 01/17/20 14:28 01/22/20 13:35 Benadryl PO 25 mg Q6H PRN Administration Itching & Insomnia Folic Acid 1 mg 01/15/20 09:00 01/23/20 09:02 Folvite PO 1 mg DAILY [place] Administration Dextrose/Water 1,000 mls @ 0 mls/hr 01/10/20 17:27 01/12/20 17:55 D5w IV 1,000 mls .Q0M PRN Administration Hypoglycemia As Directed Dextrose/Sodium Chloride 1,000 mls @ 50 mls/hr 01/17/20 13:30 01/22/20 20:56 D5 0.9% Ns IV 1,000 mls .Q20H [place] Administration Multivitamins 1 tab 01/15/20 09:00 01/23/20 09:02 Theragran PO 1 tab DAILY [place] Administration Pantoprazole Sodium 40 mg 01/10/20 21:00 07/08/20 09:02 Protonix IVP 40 mg Q12HR [place] Administration Prednisone 40 mg 01/22/20 08:00 01/23/20 09:02 Prednisone PO 40 mg QAM-WM [place] Administration Sodium Chloride 10 ml 01/10/20 17:30 01/15/20 09:01 Normal Saline Pf FS 10 ml PRN PRN Administration RECONSTITUTION Sodium Chloride 10 ml 01/11/20 08:54 01/21/20 19:36 Flush - Normal Saline IVF 10 ml PRN PRN Administration Saline Flush Thiamine HCl 100 mg 01/15/20 09:00 01/23/20 09:02 Thiamine PO 100 mg DAILY [place] Administration Tramadol HCl 50 mg 01/18/20 12:11 01/22/20 10:16 Ultram PO 50 mg Q4H PRN Administration Moderate Pain (4-6) - Exam Neck: no JVD Heart: RRR, no murmur Respiratory: CTAB Gastrointestinal: soft, normal bowel sounds, tender to palpation Extremities: no edema Hosp A/P (1) Crohn's disease Code(s): K50.90 - CROHN'S DISEASE, UNSPECIFIED, WITHOUT COMPLICATIONS Status: Chronic Qualifiers: Gastrointestinal tract location: small and large intestine Digestive disease complication type: with rectal bleeding Qualified Code(s): K50.811 - Crohn's disease of both small and large intestine with rectal bleeding (2) Rectal hemorrhage due to Crohn's disease Code(s): K50.911 - CROHN'S DISEASE, UNSPECIFIED, WITH RECTAL BLEEDING Status: Acute (3) Anemia due to blood loss, acute Code(s): D62 - ACUTE POSTHEMORRHAGIC ANEMIA Status: Acute (4) Abdominal pain Code(s): R10.9 - UNSPECIFIED ABDOMINAL PAIN Status: Acute Qualifiers: Abdominal location: generalized Qualified Code(s): R10.84 - Generalized abdominal pain (5) Iron deficiency Code(s): E61.1 - IRON DEFICIENCY Status: Acute - Plan cont iv steroids Hg pending daily CBC post stelara
[2020-01-23 10:44] LABS: Hemoglobin 9.5 g/dL (14.0-18.0); Mean Corpuscular HGB CONC 29.8 g/dL (32.0-36.0); Mean Corpuscular Hemoglobin 25.7 pg (27.0-31.0); Mean Corpuscular Volume 86.3 fL (78.0-98.0); Mean Platelet Volume 7.5 fL (7.4-10.4); Platelet Count 379 thou/uL (130-400); White Blood Cell (WBC) Count 21.7 thou/uL (4.8-10.8)
--- NOTE | 2020-01-23 11:28 | PRG ---
DATE OF SERVICE: 01/23/2020 SUBJECTIVE: Mr. Méndez is tolerating a solid diet well. He still has diarrhea, but this is stable. He has had no further bleeding today, and the bleeding yesterday was just on the toilet paper. OBJECTIVE: VITAL SIGNS: Temperature 99.0, pulse 68, and blood pressure 132/83. GENERAL: He is in no acute distress. Awake and alert. LUNGS: Clear to auscultation bilaterally. HEART: Regular rate and rhythm without murmur. ABDOMEN: Soft, nontender, and nondistended. Bowel sounds are present. EXTREMITIES: No lower extremity edema. LABORATORY DATA: White blood cell count 21.7; hemoglobin 9.5, this is after 1 unit transfusion yesterday, up from 6.7 yesterday; platelets 379. Creatinine 1.13, alkaline phosphatase 158. IMPRESSION: 1. 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 He just received his 1st dose of Stelara yesterday. We will taper prednisone while we wait for the Stelara to take effect. 2. Protein malnutrition and hypokalemia from chronic diarrhea, both of which have improved. 3. Anemia of chronic blood loss and iron deficiency. RECOMMENDATIONS: 1. He received his 1st Stelara infusion yesterday. He can follow up in GI clinic to continue maintenance outpatient subcutaneous injection. 2. Taper the prednisone. 40 mg daily for five days, then 30 mg daily for five days, then 20 mg daily for five days, then 10 mg daily for five days, then 5 mg daily for five days, and then discontinue. 3. The patient would like to go home today, which I think is reasonable. 4. Follow up in the office with Dr. Baltazar. Job ID: [id number]
[2020-01-23 11:42] LABS: Anisocytosis MODERATE=16-30 cells (100X) (0-5/hpf); Band 4 % (5-11); Eosinophils 3 % (0-10); Hypochromia SLIGHT = 6-15 cells (100X) (0-5/hpf); Lymphocytes 12 % (21-51); MDiff Complete? YES; Metamyelocyte 3 % (0-0); Monocytes 3 % (0-10); Myelocyte 6 % (0-0); Neutrophil 69 % (42-75); Platelet Morphology Comment Appears Adequate; Polychromasia SLIGHT = 2-3 cells (100X) (0-2/hpf)
--- NOTE | 2020-01-24 06:57 | DIS ---
DATE OF ADMISSION: 01/10/2020 DATE OF DISCHARGE: 01/23/2020 PRIMARY CARE PROVIDER: Dr. Wander Baltazar. DISPOSITION: Discharged home. FINAL DIAGNOSES: Rectal bleeding secondary to Crohn disease, Crohn disease, hypokalemia, anemia secondary to acute blood loss, abdominal pain. DISCHARGE MEDICATIONS: Prednisone 40 mg a day in decreasing doses every 4 days. ALLERGIES: NONE. PENDING AT THE TIME OF DISCHARGE: Nothing. CODE STATUS: Full. CONSULTATIONS: Gastroenterology, Dr. No. HOSPITAL COURSE: The patient admitted to the Hospitalist Service through [facility] with rectal bleeding and abdominal pain. He has a long history of Crohn disease. White cell count was 11.7, hemoglobin 7.2, hematocrit 24, and platelet count 523. Dr. Hector No was consulted. Plan to follow through with EGD and colonoscopy after his potassium was repleted. He was given IV iron on 01/13/2020. He had EGD with biopsy and colonoscopy with biopsy. The path report, unremarkable duodenal mucosa. No celiac sprue. No dysplasia. Preservation of villous architecture. No Sánchez esophagus. Some active esophagitis. His large intestine revealed focal active colitis, and rectal revealed an ulcer with acute inflammation. The patient was started on IV steroids. Plans for Stelara infusion were made. His laboratory was followed through his hospital stay. Hemoglobin at one point was as high as 10.4. Most of the time his hemoglobin was in the 7 to 8 range. On 01/21, he required another transfusion. His hemoglobin is now 9.5. His white cell count is up to 21.7, which is thought to be due to his steroids. He received Stelara IV last night. He has been evaluated by Dr. No today and approved for discharge. Prescriptions have been written. He is to see Dr. No in followup. Job ID: [id number]
== END 2020-01-23 17:35 | disposition home or self-care (01) | DRG 385 ==
LOC: 2NO 08:25 → ONC 01-14 15:34
PROVIDERS: ADMIT Internal Medicine; ATTEND Internal Medicine
PROC: 30233N1 Transfusion of Nonautologous Red Blood Cells into Peripheral Vein, Percutaneous Approach (ICD-10-PCS; 2020-01-11)
PROC: 0D738ZZ Dilation of Lower Esophagus, Via Natural or Artificial Opening Endoscopic (ICD-10-PCS; principal; 2020-01-13)
PROC: 0DB98ZX Excision of Duodenum, Via Natural or Artificial Opening Endoscopic, Diagnostic (ICD-10-PCS; 2020-01-13)
PROC: 0DB58ZX Excision of Esophagus, Via Natural or Artificial Opening Endoscopic, Diagnostic (ICD-10-PCS; 2020-01-13)
PROC: 0DBM8ZX Excision of Descending Colon, Via Natural or Artificial Opening Endoscopic, Diagnostic (ICD-10-PCS; 2020-01-13)
PROC: 0DBE8ZX Excision of Large Intestine, Via Natural or Artificial Opening Endoscopic, Diagnostic (ICD-10-PCS; 2020-01-13)
PROC: 0DBL8ZX Excision of Transverse Colon, Via Natural or Artificial Opening Endoscopic, Diagnostic (ICD-10-PCS; 2020-01-13)
PROC: 0DBN8ZX Excision of Sigmoid Colon, Via Natural or Artificial Opening Endoscopic, Diagnostic (ICD-10-PCS; 2020-01-13)
PROC: 0W3P8ZZ Control Bleeding in Gastrointestinal Tract, Via Natural or Artificial Opening Endoscopic (ICD-10-PCS; 2020-01-19)
DX: K50.80 Crohn's disease of both small and large intestine without complications (principal); E43 Unspecified severe protein-calorie malnutrition; Z68.1 Body mass index [BMI] 19.9 or less, adult; R64 Cachexia; F17.210 Nicotine dependence, cigarettes, uncomplicated; D62 Acute posthemorrhagic anemia; E87.2 Acidosis; K21.9 Gastro-esophageal reflux disease without esophagitis; F32.9 Major depressive disorder, single episode, unspecified; F41.9 Anxiety disorder, unspecified; E87.6 Hypokalemia; D50.9 Iron deficiency anemia, unspecified; R13.10 Dysphagia, unspecified; Z90.49 Acquired absence of other specified parts of digestive tract; Z93.2 Ileostomy status; K20.0 Eosinophilic esophagitis; E83.42 Hypomagnesemia; E83.39 Other disorders of phosphorus metabolism; E87.5 Hyperkalemia; K58.0 Irritable bowel syndrome with diarrhea
CPT/HCPCS: 36415; 36416; 36430; 80048; 80053; 80069; 80074; 82274; 82306; 82607; 82728; 82746; 83516; 83540; 83550; 83605; 83630; 83735; 83880; 84100; 84134; 85014; 85018; 85025; 85027; 85049; 85652; 86140; 86480; 86706; 86708; 86850; 86900; 86901; 87324; 87328; 87329; 87427; 87449; 87497; 88305; 88312; 88313; 93005; 93010; C9113; J1200; J1650; J2001; J2704; J2916; J2920; J3358; J3475; J3480; J3490; J7042; J7050; J7070; J7512; P9016; Q0163

== ENCOUNTER 2020-01-23 21:06 | Observation (INO) | payer MEDICARE ==
[2020-01-23] MEDS ORDERED: Furosemide 40 MG/4 ML VIAL ONE (21:58)
--- NOTE | 2020-01-23 22:16 | RAD ---
Chest AP view INDICATION: Dyspnea COMPARISON: May 12, 2014 FINDINGS: Lungs: There is left basilar atelectasis Cardiac silhouette: The cardiomediastinal silhouette appears within normal limits. Pulmonary vasculature: Normal Pleural spaces: There are small bilateral pleural effusions Upper abdomen: Cholecystectomy clips Osseous structures: No acute osseous abnormality. Additional findings: None. IMPRESSION: Small bilateral pleural effusions with left basilar atelectasis.
[2020-01-23 22:36] LABS: Hemoglobin 9.5 g/dL (14.0-18.0); Mean Corpuscular HGB CONC 31.7 g/dL (32.0-36.0); Mean Corpuscular Hemoglobin 27.1 pg (27.0-31.0); Mean Corpuscular Volume 85.5 fL (78.0-98.0); Mean Platelet Volume 8.1 fL (7.4-10.4); Platelet Count 389 thou/uL (130-400); RBC Distribution Width 26.1 % (11.5-14.5); Red Blood Cell (RBC) Count 3.51 mill/uL (4.70-6.10)
[2020-01-23] MEDS ORDERED: Fentanyl 100 MCG/2 ML VIAL ONE (22:39)
[2020-01-23 22:42] LABS: Band 7 % (5-11); Lymphocytes 8 % (21-51); MDiff Complete? YES; Metamyelocyte 1 % (0-0); Monocytes 4 % (0-10); Myelocyte 3 % (0-0); Neutrophil 77 % (42-75); Nucleated RBC 1 % (0)
[2020-01-23 22:44] LABS: Anisocytosis SLIGHT = 6-15 cells (100X) (0-5/hpf); Polychromasia SLIGHT = 2-3 cells (100X) (0-2/hpf)
[2020-01-23 23:10] LABS: Albumin 2.8 g/dL (3.5-5.0)
[2020-01-23 23:11] LABS: Chloride 106 mmol/L (98-107); Potassium 4.3 mmol/L (3.5-5.1); Sodium 142 mmol/L (136-145)
[2020-01-23 23:12] LABS: Calcium 8.2 mg/dL (7.8-10.44)
[2020-01-23 23:13] LABS: Globulin 2.2 g/dL (2.4-3.5); Glucose 99 mg/dL (70-105)
[2020-01-23 23:14] LABS: Anion Gap 10 mmol/L (10-20); Bilirubin, Total 0.3 mg/dL (0.2-1.2); Carbon Dioxide 30 mmol/L (22-29)
[2020-01-23 23:15] LABS: Alkaline Phosphatase 153 U/L (40-110)
[2020-01-23 23:16] LABS: Calc. Creatinine Clearance 0 mL/min (70-130); Estimated GFR-MDRD 66
[2020-01-23 23:17] LABS: BUN (Urea Nitrogen) 21 mg/dL (8.9-20.6)
[2020-01-23 23:18] LABS: ALT (SGPT) 213 U/L (8-55); AST (SGOT) 59 U/L (5-34)
[2020-01-23 23:19] LABS: CK (CPK) 51 U/L (30-200)
[2020-01-24] MEDS ORDERED: Acetaminophen 500 MG TAB ONE (00:30)
[2020-01-24 01:44] LABS: Troponin I Less than 0.010 ng/mL (< 0.028)
[2020-01-24 02:12] VITALS: BMI 17.2
[2020-01-24] MEDS ORDERED: Ondansetron PF 4 MG/2 ML Vial IVP PRN (02:31)
[2020-01-24] MEDS ORDERED: Ondansetron ODT 4 MG TAB SL PRN (02:31)
[2020-01-24] MEDS ORDERED: traMADol HCl 50 MG TAB PO PRN ×2 (03:06→13:59)
[2020-01-24] MEDS ORDERED: traMADol HCl 50 MG TAB PO SCH (03:15)
[2020-01-24 05:17] LABS: Troponin I Less than 0.010 ng/mL (< 0.028)
--- NOTE | 2020-01-24 06:21 | HP ---
REASON FOR ADMISSION: Scrotal swelling and bilateral lower extremity swelling. HISTORY OF PRESENT ILLNESS: This is a 44-year-old male patient, who was discharged yesterday from our hospital. He was admitted on January 09, diagnosed with severe hypokalemia and abdominal pain in the setting of Crohn disease. He was seen by Gastroenterology. He did undergo an EGD and colonoscopy, and he was found to have an esophageal stricture and a post anastomotic stricture of the colon and ulceration consistent with Crohn disease, was placed on Solu-Medrol and cholestyramine, and upon discharge, he told me that he was started on Stelara. After going home on the same day, he noticed sudden onset of swelling of bilateral lower extremities and his scrotal area and that is why he came back. He currently complains of slight abdominal discomfort and back pain. PAST MEDICAL HISTORY: 1. Crohn disease diagnosed at age 19, post two small bowel resection. 2. Appendectomy. 3. Cholecystectomy. 4. Post-ileostomy placement and then takedown. 5. Chronic diarrhea. 6. Colon resection. 7. GERD. 8. Depression. 9. Anxiety. ALLERGIES: CONTRAST AND BLOOD TRANSFUSION. FAMILY HISTORY: Positive for heart disease. REVIEW OF SYSTEMS: All systems reviewed except the above mentioned, found to be negative. PHYSICAL EXAMINATION: GENERAL: Awake, alert, and oriented, does not appear in distress. VITAL SIGNS: His blood pressure is 115/65, respiratory rate 20, saturating 98% on room air, and temperature is 98.1. HEENT: Head is nontraumatic and normocephalic. Pupils equal, reactive. Extraocular movements are intact. Nonicteric sclerae. Well-injected conjunctivae. Oral mucosa normal. Nasal mucosa normal. NECK: Supple. No adenopathy. No murmur. Thyroid is not palpable. Trachea is midline. No supraclavicular lymphadenopathy. HEART: S1 and S2, regular. No murmur. No gallops. No friction rubs. No displacement of PMI. LUNGS: Clear to auscultation bilaterally. No wheezes or rhonchi. No crackles. ABDOMEN: Bowel sounds are positive. Slightly tender abdomen, but overall soft. EXTREMITIES: He has 3+ pitting edema of the feet and he has good amount of swelling of his scrotal area. NEUROLOGIC: Cranial nerves 2 through 12 within normal limits. Normal motor function. Normal sensory function. Normal reflexes. LABORATORY DATA: Blood work shows sodium 142, potassium 4.3, BUN 21, creatinine 1.21. AST 59, ALT 213, alkaline phosphatase 153, albumin 2.8. Troponin less than 0.01. WBC of 21.7, hemoglobin 9.5, previous hemoglobin 6.7, and platelets of 379. A chest x-ray shows small bilateral pleural effusion with left basilar atelectasis. ASSESSMENT AND PLAN: This is a 44-year-old male patient, who is presenting after being discharged recently and he noticed bilateral lower extremity swelling and substantial scrotal swelling. His bilateral lower extremity swelling did improve after receiving Lasix in the ER, so we will continue with diuresing him and we will order an echocardiogram to evaluate his cardiac function. For his history of Crohn's, continue with prednisone. For his chronic pain, continue with tramadol. For deep venous thrombosis prophylaxis, he will be on SCDs. Job ID: [id number]
[2020-01-24] MEDS: predniSONE 5 MG TAB PO SCH ×3 (08:43→16:50)
[2020-01-24] MEDS ORDERED: Furosemide 40 MG/4 ML VIAL SLOW IVP SCH ×2 (09:00)
--- NOTE | 2020-01-24 11:23 | ULT ---
EXAM: Bilateral lower extremity venous ultrasound HISTORY: Bilateral lower extremity swelling. COMPARISON: None TECHNIQUE: Multiplanar grayscale and color Doppler images were obtained in a bilateral lower extremit y venous ultrasound. Spectral analysis of the Doppler waveforms were performed. FINDINGS: The bilateral common femoral vein, profunda femoral veins, superficial femoral veins, and p opliteal veins are normal in appearance without visible thrombus. These vessels demonstrate normal compression, flow, and augmentation. The bilateral posterior tibial veins, profunda femoral veins and greater saphenous veins are patent w ithout evidence of DVT. IMPRESSION: No evidence of DVT in the left or right lower extremity.
[2020-01-24] MEDS: Albumin 25% 25 GM/100 ML BOT IVPB SCH ×2 (12:44→17:56)
[2020-01-24] MEDS: traMADol HCl 50 MG TAB PO PRN ×2 (12:45→17:02)
[2020-01-24] MEDS ORDERED: Furosemide 20 MG TAB PO SCH (14:00)
--- NOTE | 2020-01-24 17:46 | DIS ---
DATE OF ADMISSION: 01/24/2020 DATE OF DISCHARGE: 01/24/2020 DISCHARGE DISPOSITION: Home. FOLLOWUP: 1. Follow up with primary care physician at [facility] in 1 week. 2. Follow up with Gastroenterology as scheduled. DISCHARGE MEDICATIONS: Same as admission medications. Protonix was added since the patient is on steroids. The patient was seen and examined on the day of discharge. Denies any new complaints. No chest pain, shortness of breath, or palpitations reported. BRIEF HOSPITAL COURSE: The patient is a 44-year-old male, who was discharged from this facility yesterday, presented to the hospital with bilateral lower extremity swelling as well as scrotal swelling. Please refer to the history and physical for further details. The patient was admitted to the telemetry unit with a diagnosis of volume overload, rule out congestive heart failure. He was started on gentle diuretics with good response. DVT was ruled out. He had an echocardiogram that showed normal left ventricular ejection fraction of 60% to 65%. Chest x-ray was negative for infiltrate or edema. It showed small bilateral pleural effusion with left basilar atelectasis. Most likely etiology of his anasarca is protein energy malnutrition. He also received 1 dose of IV albumin. He was counseled on lower extremity elevation, especially at night. He was also advised to increase protein intake. He appears stable for discharge. FINAL DIAGNOSES: 1. Generalized anasarca secondary to severe protein energy malnutrition. 2. Recent hospitalization for gastrointestinal bleeding secondary to Crohn disease. 3. Chronic iron-deficiency anemia. Please note, the patient received blood transfusion as well as IV iron last admission. 4. Gastroesophageal reflux disease. 5. Anxiety. 6. Tobacco dependence. Job ID: [id number]
[2020-01-24 18:15] VITALS: BP 118/72; TEMP 98.3
== END 2020-01-24 19:17 | disposition home or self-care (01) ==
LOC: ERS 21:06 → 2NO 01-24 01:54
PROVIDERS: ADMIT Internal Medicine; ATTEND Internal Medicine
DX: E43 Unspecified severe protein-calorie malnutrition (principal); R60.1 Generalized edema; N50.89 Other specified disorders of the male genital organs; M79.89 Other specified soft tissue disorders; E87.70 Fluid overload, unspecified; D50.8 Other iron deficiency anemias; K21.9 Gastro-esophageal reflux disease without esophagitis; F41.9 Anxiety disorder, unspecified; F17.200 Nicotine dependence, unspecified, uncomplicated; G89.29 Other chronic pain; F32.9 Major depressive disorder, single episode, unspecified; F11.11 Opioid abuse, in remission; K50.90 Crohn's disease, unspecified, without complications; Z68.1 Body mass index [BMI] 19.9 or less, adult; Z79.52 Long term (current) use of systemic steroids; Z91.041 Radiographic dye allergy status; Z91.09 Other allergy status, other than to drugs and biological substances; Z90.49 Acquired absence of other specified parts of digestive tract
CPT/HCPCS: 71045; 80053; 82550; 83880; 84484 ×3; 85025; 93005; 93306; 93970; 96374; 96375; 97139; 99285; P9047; 36415; 96365; 96366; 96376; G0378; J1940; J3010; J7512

== ENCOUNTER 2020-02-01 21:51 | Emergency (ER) | payer MEDICARE ==
[~2020-02-01 21:51] MED LIST: Iopamidol-370 76% 500 ML 1 ML ONE
[2020-02-01] MEDS ORDERED: methylPREDNISolone Sod Succ/PF 125 MG/2 ML VIAL ONE (23:06)
[2020-02-01] MEDS ORDERED: Morphine 4 MG/ML VIAL ONE (23:06)
[2020-02-01] MEDS ORDERED: diphenhydrAMINE 50 MG/ML VIAL ONE (23:06)
[2020-02-01] MEDS ORDERED: Famotidine/PF 20 mg/2ml Vial ONE (23:06)
[2020-02-01] MEDS ORDERED: Ondansetron PF 4 MG/2 ML Vial ONE (23:06)
[2020-02-01 23:37] LABS: #Lymphocytes 0.6 thou/uL (1.20-3.40); #Monocytes 0.3 thou/uL (0.11-0.59); #Neutrophils 15.6 thou/uL (1.40-6.50); %Lymphocytes 3.4 % (21.0-51.0); %Monocytes 1.7 % (0.0-10.0); %Neutrophils 94.8 % (42.0-75.0); Hemoglobin 9.8 g/dL (14.0-18.0); Mean Corpuscular Hemoglobin 26.7 pg (27.0-31.0); Mean Corpuscular Volume 86.3 fL (78.0-98.0); Mean Platelet Volume 8.3 fL (7.4-10.4); Platelet Count 483 thou/uL (130-400); RBC Distribution Width 24.9 % (11.5-14.5); Red Blood Cell (RBC) Count 3.67 mill/uL (4.70-6.10); White Blood Cell (WBC) Count 16.4 thou/uL (4.8-10.8)
[2020-02-01] MEDS ORDERED: Ketamine 50 MG/ML (10ML VIAL) ONE (23:39)
[2020-02-02] MEDS ORDERED: Clindamycin/D5W 600 mg/50 ml Premix Bag ONE (01:12)
[2020-02-02 01:43] LABS: ALT (SGPT) 166 U/L (8-55); AST (SGOT) 108 U/L (5-34); Alkaline Phosphatase 260 U/L (40-110); Anion Gap 10 mmol/L (10-20); BUN (Urea Nitrogen) 25 mg/dL (8.9-20.6); Bilirubin, Total 0.3 mg/dL (0.2-1.2); Calc. Creatinine Clearance 0 mL/min (70-130); Calcium 8.2 mg/dL (7.8-10.44); Carbon Dioxide 23 mmol/L (22-29); Chloride 104 mmol/L (98-107); Estimated GFR-MDRD Greater than 90; Globulin 2.3 g/dL (2.4-3.5); Glucose 94 mg/dL (70-105); Potassium 5.3 mmol/L (3.5-5.1); Protein, Total 5.3 g/dL (6.0-8.3); Sodium 132 mmol/L (136-145)
--- NOTE | 2020-02-02 09:38 | CT ---
PRELIMINARY REPORT/[facility]/EMERGENCY AFTER HOURS PROCEDURE: EXAM: CT Chest with Intravenous Contrast. CLINICAL HISTORY: Pt presents for large abscess to superior right shoulder that has gradually increased in size since o nset 4 days ago. He saw his PCP yesterday and was diagnosed with pyoderma gangrenosum and instructed to use topical antibiotic ointment. He was prescribed T#3. States symptoms have worsened since yester day. Exacerbated by movement and palpation. No alleviating factors TECHNIQUE: Axial computed tomography images of the chest with intravenous contrast. CONTRAST: With; ISOVUE 370,100mL COMPARISON: None provided. FINDINGS: LUNGS: The lungs are clear. No focal airspace consolidation. No pulmonary mass. PLEURAL SPACES: No pleural effusion. No pneumothorax. HEART AND MEDIASTINUM: No cardiomegaly. No significant pericardial effusion. LYMPH NODES: No lymphadenopathy. BONES: No focal osseous abnormality or acute fracture. CHEST WALL AND UPPER ABDOMEN: Cholecystectomy clips. The upper abdominal solid organs are otherwise unremarkable. Soft tissue mass overlying the right acromioclavicular joint measuring 5.4 x 1.2 cm. IMPRESSION: 1. Soft tissue mass overlying the right acromioclavicular joint measuring 5.4 x 1.2 cm. this is in c lose proximity to the acromioclavicular joint without definitive communication. No erosive bony sosa ges. 2. No acute cardiopulmonary finding. ELECTRONICALLY SIGNED BY: Luis Mccormick DO Feb 02, 2020 12:54:06 AM CDT This report is intended for review by the ordering physician only, in accordance of law. If you recei ve this report in error, please call [facility] at [phone]. FINAL REPORT EMERGENCY AFTER HOURS CT CHEST WITH CONTRAST: FINDINGS/IMPRESSION: I agree with the findings and impression given in the preliminary report per [facility] physici an. There is soft tissue thickening versus a mass medially overlying the acromioclavicular joint. No foca l fluid collection is seen to suggest an abscess. POS: [facility]
== END 2020-02-02 02:30 | disposition home or self-care (01) ==
LOC: ERS 21:51
DX: L03.113 Cellulitis of right upper limb (principal); L88 Pyoderma gangrenosum; K50.90 Crohn's disease, unspecified, without complications; Z87.891 Personal history of nicotine dependence; Z79.52 Long term (current) use of systemic steroids
CPT/HCPCS: 36415; 71260; 80053; 85025; 85652; 86140; 96365; 96366; 96374; 96375; J1200; J2270; J2405; J2930; J3490; Q9967; S0028

== ENCOUNTER 2020-12-23 17:49 | Inpatient (IN) | payer MEDICARE ==
[2020-12-23] MEDS ORDERED: methylPREDNISolone Sod Succ/PF 125 MG/2 ML VIAL ONE (20:25)
[2020-12-23] MEDS ORDERED: Promethazine HCl 25 MG/ML VIAL ONE (20:25)
[2020-12-23 20:28] LABS: #Basophils 0.1 thou/uL (0.0-0.2); #Eosinphils 0.1 thou/uL (0.0-0.7); #Monocytes 1.2 thou/uL (0.11-0.59); %Basophils 0.6 % (0.0-1.0); %Eosinophils 0.7 % (0.0-10.0); %Lymphocytes 15.1 % (21.0-51.0); %Monocytes 8.8 % (0.0-10.0); %Neutrophils 74.8 % (42.0-75.0); Hemoglobin 11.4 g/dL (14.0-18.0); Mean Corpuscular HGB CONC 32.7 g/dL (32.0-36.0); Mean Corpuscular Hemoglobin 25.1 pg (27.0-31.0); Mean Corpuscular Volume 76.8 fL (78.0-98.0); Mean Platelet Volume 7.8 fL (7.4-10.4); Platelet Count 485 thou/uL (130-400); RBC Distribution Width 16.6 % (11.5-14.5); Red Blood Cell (RBC) Count 4.55 mill/uL (4.70-6.10); White Blood Cell (WBC) Count 13.3 thou/uL (4.8-10.8)
[2020-12-23 20:47] LABS: ALT (SGPT) 40 U/L (8-55); AST (SGOT) 35 U/L (5-34); Albumin 4.2 g/dL (3.5-5.0); Alkaline Phosphatase 131 U/L (40-110); Anion Gap 17 mmol/L (10-20); BUN (Urea Nitrogen) 19 mg/dL (8.9-20.6); Bilirubin, Total 0.4 mg/dL (0.2-1.2); Calc. Creatinine Clearance 0 mL/min (70-130); Calcium 9.2 mg/dL (7.8-10.44); Carbon Dioxide 23 mmol/L (22-29); Chloride 101 mmol/L (98-107); Globulin 2.8 g/dL (2.4-3.5); Glucose 79 mg/dL (70-105); Sodium 138 mmol/L (136-145)
[2020-12-23 20:51] LABS: Potassium 2.8 mmol/L (3.5-5.1)
[2020-12-23] MEDS ORDERED: Ondansetron PF 4 MG/2 ML Vial ONE (22:35)
[2020-12-23] MEDS ORDERED: Acetaminophen 325 MG TAB PO PRN (22:47)
[2020-12-23] MEDS ORDERED: Ondansetron ODT 4 MG TAB PO PRN (22:47)
[2020-12-23] MEDS ORDERED: Electrolyte Replacement Protocol 1 EACH FS SCH (23:00)
[2020-12-23] MEDS ORDERED: Pantoprazole 40 MG VIAL IVP SCH (23:15)
[2020-12-24 00:50] VITALS: BMI 17.9
[2020-12-24] MEDS: Potassium Chloride 20 MEQ in Premix Bag 1 BAG IVPB SCH ×2 (00:59→01:00)
[2020-12-24] MEDS: Ondansetron PF 4 MG/2 ML Vial IVP PRN ×2 (00:59→06:25)
[2020-12-24] MEDS: Sodium Chloride 0.9% 1,000 ML IV SCH ×3 (01:00→19:05)
[2020-12-24] MEDS ORDERED: Magnesium 2 GM/50 ML 2 GM in Premix Bag 1 BAG IVPB SCH (01:15)
[2020-12-24] MEDS ORDERED: Sucralfate 1 GM TAB PO SCH (02:00)
[2020-12-24] MEDS ORDERED: Ketorolac Tromethamine 30 MG/ML VIAL IVP SCH (02:15)
[2020-12-24 02:48] LABS: SARS-CoV-2 NAA Rapid Test Not Detected (NotDetected)
[2020-12-24] MEDS ORDERED: Morphine 4 MG/ML VIAL SLOW IVP SCH (03:00)
[2020-12-24 05:21] LABS: #Monocytes 0.1 thou/uL (0.11-0.59); #Neutrophils 8.5 thou/uL (1.40-6.50); %Basophils 0.1 % (0.0-1.0); %Lymphocytes 10.6 % (21.0-51.0); %Monocytes 1.1 % (0.0-10.0); %Neutrophils 88.3 % (42.0-75.0); Hemoglobin 10.7 g/dL (14.0-18.0); Mean Corpuscular HGB CONC 31.7 g/dL (32.0-36.0); Mean Corpuscular Hemoglobin 24.7 pg (27.0-31.0); Mean Corpuscular Volume 77.8 fL (78.0-98.0); Platelet Count 432 thou/uL (130-400); RBC Distribution Width 16.5 % (11.5-14.5); Red Blood Cell (RBC) Count 4.33 mill/uL (4.70-6.10); White Blood Cell (WBC) Count 9.6 thou/uL (4.8-10.8)
[2020-12-24 05:41] LABS: Anion Gap 14 mmol/L (10-20); BUN (Urea Nitrogen) 18 mg/dL (8.9-20.6); Calc. Creatinine Clearance 57 mL/min (70-130); Calcium 8.4 mg/dL (7.8-10.44); Carbon Dioxide 18 mmol/L (22-29); Chloride 106 mmol/L (98-107); Glucose 92 mg/dL (70-105); Potassium 3.1 mmol/L (3.5-5.1); Sodium 135 mmol/L (136-145)
[2020-12-24] MEDS ORDERED: Electrolyte Replacement Protocol 1 EACH FS SCH (07:30)
[2020-12-24] MEDS ORDERED: Potassium Chloride 40 MEQ in Sodium Chloride 0.9% 250 ML 250 ML IVPB SCH (08:00)
[2020-12-24 08:04] LABS: Bilirubin Negative (Negative); Blood, Urine Negative (Negative); Glucose, Urine (Dipstick) Negative (Negative); Ketone, Urine 40 mg/dL (Negative); Leukocyte Negative (Negative); Nitrite Negative (Negative); Protein, Urine (Dipstick) Trace mg/dL (Neg-Trace); Specific Gravity, Urine 1.025 (1.005-1.030); Urobilinogen 0.2 mg/dL (Less than 2)
[2020-12-24 08:08] LABS: Clarity Clear (Clear)
[2020-12-24] MEDS: Pantoprazole 40 MG VIAL IVP SCH ×2 (08:11→20:53)
[2020-12-24 08:14] LABS: Bacteria/HPF None Seen HPF (None Seen); RBC/HPF 0-3 HPF (0-3); Squamous Epithelial None Seen HPF (0-3); WBC/HPF 0-3 HPF (0-3)
[2020-12-24] MEDS ORDERED: methylPREDNISolone Sod Succ 40 MG VIAL IVP SCH (09:00)
[2020-12-24] MEDS ORDERED: Pantoprazole 40 MG VIAL IVP SCH (09:00)
[2020-12-24 17:30] LABS: Potassium 3.3 mmol/L (3.5-5.1)
[2020-12-24] MEDS ORDERED: Potassium Chloride 20 MEQ TAB PO SCH (20:00)
[2020-12-24] MEDS: methylPREDNISolone Sod Succ 40 MG VIAL IVP SCH (21:00)
[2020-12-24] MEDS ORDERED: Melatonin 3 MG TAB PO SCH (21:45)
[2020-12-25] MEDS ORDERED: diphenhydrAMINE 25 MG CAP PO SCH (02:45)
[2020-12-25] MEDS: Sodium Chloride 0.9% 1,000 ML IV SCH (02:53)
[2020-12-25] MEDS: methylPREDNISolone Sod Succ 40 MG VIAL IVP SCH (08:00)
[2020-12-25] MEDS: Pantoprazole 40 MG VIAL IVP SCH (08:04)
[2020-12-25 11:37] VITALS: BP 99/66; TEMP 97.9
== END 2020-12-25 15:00 | disposition left against medical advice (07) | DRG 386 ==
LOC: ERS 17:49 → ERHOLD 21:43 → T4-B 12-24 00:44
PROVIDERS: ADMIT Student in an Organized Health Care Education/Training Program; ATTEND Internal Medicine
DX: K50.811 Crohn's disease of both small and large intestine with rectal bleeding (principal); N17.9 Acute kidney failure, unspecified; D62 Acute posthemorrhagic anemia; Z20.822 Contact with and (suspected) exposure to COVID-19; E87.6 Hypokalemia; K62.4 Stenosis of anus and rectum; Z53.29 Procedure and treatment not carried out because of patient's decision for other reasons; Z91.041 Radiographic dye allergy status; Z87.11 Personal history of peptic ulcer disease; Z90.49 Acquired absence of other specified parts of digestive tract; Z87.442 Personal history of urinary calculi
CPT/HCPCS: 36415; 74018; 74176; 80048; 80053; 81001; 83605; 83735; 85025; 86140; C9113; J2270; J2405; J2550; J2920; J2930; J3475; J3480; J7050; Q0163; U0002; U0005